=== PATIENT | female | born 1995 | race Caucasian/White ===

== ENCOUNTER 2021-02-03 18:04 | Emergency (ER) | payer OTHER ==
[~2021-02-03] VITALS: Ht 165.1 cm; Wt 74.8 kg
[2021-02-03 18:15] VITALS: BP 116/63
[2021-02-03] MEDS ORDERED: predniSONE 20 MG TABLET PO ONE (18:30)
[2021-02-03] MEDS ORDERED: diphenhydrAMINE HCL 25 MG CAPSULE PO ONE (18:30)
[2021-02-03] MEDS ORDERED: predniSONE 20 MG TABLET ONE (18:38)
[2021-02-03] MEDS ORDERED: diphenhydrAMINE HCL 50 MG CAPSULE ONE (18:38)
[2021-02-03] MEDS ORDERED: SUCR1TAB PO (19:11)
[2021-02-03] MEDS ORDERED: PRED20TA PO (19:11)
[2021-02-03] MEDS ORDERED: DIPH50CA4 PO (19:11)
--- NOTE | 2021-02-03 19:20 | NUR ---
Patient discharged to home in stable condition. Written and verbal after care instructions given. Patient verbalizes understanding of instruction.
== END 2021-02-03 19:20 | disposition home or self-care (01) ==
LOC: ER 18:04
DX: T78.1XXA Other adverse food reactions, not elsewhere classified, initial encounter (principal); R10.13 Epigastric pain; R00.0 Tachycardia, unspecified; K21.9 Gastro-esophageal reflux disease without esophagitis; F43.10 Post-traumatic stress disorder, unspecified; Z88.8 Allergy status to other drugs, medicaments and biological substances; Z88.2 Allergy status to sulfonamides; Z88.1 Allergy status to other antibiotic agents; Z79.899 Other long term (current) drug therapy; X58.XXXA Exposure to other specified factors, initial encounter
CPT/HCPCS: 99283; J7512; Q0163

== ENCOUNTER 2023-02-27 16:22 | Emergency (ER) | payer OTHER ==
[~2023-02-27] VITALS: Ht 165.1 cm; Wt 74.8 kg
[~2023-02-27 16:22] MED LIST: DIPH50CA4 PO; PRED20TA PO; SUCR1TAB PO
--- NOTE | 2023-02-27 16:22 | NUR ---
[facility] FOR ALLERGIC REACTION. PATIENT HAS MANY ALLERGIES AND HISTORY OF ALLERGIC RESPONSES REQUIRING ER VISITS, PATIENT WAS EXPOSED TO COUGH SYRUP TODAY WHICH CAUSED AN ALLERGIC RESPONSE. A/O X 3, ABLE TO MAKE NEEDS KNOWN, TOLERATING WELL ON ROOM AIR. WITH PERMACATH ON RIGHT UPPER CHEST D/T HX CROHNS DISEASE.
[2023-02-27] MEDS ORDERED: methylPREDNISolone SOD SUCC 125 MG/2ML VIAL IV ONE (17:00)
[2023-02-27] MEDS ORDERED: FAMOTIDINE/PF INJ 20 MG/2 ML VIAL IV ONE ×2 (17:00→17:02)
[2023-02-27] MEDS ORDERED: diphenhydrAMINE HCL 50 MG/ML VIAL IV ONE ×2 (17:00→22:00)
--- NOTE | 2023-02-27 17:00 | NUR ---
ACCESS OBTAINED VIA RIGHT UPPER CHEST PERMACATH. STERILE TECHNIQUE USED TO OBTAIN ACCESS AND ATTACH TUBING. ALL MEDICATIONS ADMINISTERED VIA PERMACATH ACCESS ORDERED.
[2023-02-27] MEDS ORDERED: diphenhydrAMINE HCL 50 MG/ML VIAL ONE ×2 (17:01→21:45)
[2023-02-27] MEDS ORDERED: methylPREDNISolone SOD SUCC 125 MG/2ML VIAL ONE (17:01)
--- NOTE | 2023-02-27 19:15 | NUR ---
Pt is noted in bed alert, responsive as report is rteceived from the off going nurse that Pt came from home C/O SOB and Itchiness after Drinking Cough Syrup , 1gm off EPI was given on sence. Pt care continue.
[2023-02-27] MEDS ORDERED: IV NS 0.9% 1,000 ML IV ONE (21:00)
[2023-02-27] MEDS ORDERED: DIPH25CA83 PO (21:21)
[2023-02-27] MEDS ORDERED: PRED20TA PO (21:21)
[2023-02-27] MEDS ORDERED: ONDANSETRON HCL/PF 4 MG/2 ML VIAL ONE (21:45)
--- NOTE | 2023-02-27 21:49 | NUR ---
Benadryl 25mg IVP and Zofran 4mg IVP given as ordered. Pt care continue.
[2023-02-27] MEDS ORDERED: ONDANSETRON HCL/PF 4 MG/2 ML VIAL IV ONE (22:00)
--- NOTE | 2023-02-27 23:09 | NUR ---
Benadryl 25mg IVP and Zofran 4mg IVP noted effective. Pt care continue.
[2023-02-27 23:23] VITALS: BP 122/63
--- NOTE | 2023-02-27 23:24 | NUR ---
Pt is noted off the unit as she is been discharge to home with all discharge instruction given
== END 2023-02-27 23:25 | disposition home or self-care (01) ==
LOC: ER 16:26
DX: R20.2 Paresthesia of skin (principal); R06.2 Wheezing; T50.905A Adverse effect of unspecified drugs, medicaments and biological substances, initial encounter; K50.90 Crohn's disease, unspecified, without complications; K21.9 Gastro-esophageal reflux disease without esophagitis; Z60.2 Problems related to living alone; Z79.899 Other long term (current) drug therapy; Z88.2 Allergy status to sulfonamides; Z88.1 Allergy status to other antibiotic agents; Y92.59 Other trade areas as the place of occurrence of the external cause
CPT/HCPCS: 99285; 96374; 96375; 96361; 96376; J1200 ×2; J3490; J2930; J2405; J7030; A4223

== ENCOUNTER 2023-09-16 15:30 | Emergency (ER) | payer OTHER ==
[~2023-09-16] VITALS: Ht 165.1 cm; Wt 74.8 kg
[~2023-09-16 15:30] MED LIST changes: +DIPH25CA83 PO
[2023-09-16] MEDS ORDERED: predniSONE 20 MG TABLET ONE (17:29)
[2023-09-16] MEDS ORDERED: FAMOTIDINE (20 MG) 20 MG TABLET ONE (17:30)
[2023-09-16] MEDS ORDERED: diphenhydrAMINE HCL 50 MG CAPSULE ONE (17:30)
[2023-09-16] MEDS ORDERED: predniSONE 10 MG TABLET PO ONE (17:30)
[2023-09-16] MEDS ORDERED: FAMOTIDINE (20 MG) 20 MG TABLET PO ONE (17:30)
[2023-09-16] MEDS ORDERED: ONDANSETRON 4 MG TAB.RAPDIS SL ONE (17:30)
[2023-09-16] MEDS ORDERED: ONDANSETRON 4 MG TAB.RAPDIS ONE (17:30)
[2023-09-16] MEDS ORDERED: diphenhydrAMINE HCL 50 MG CAPSULE PO ONE (17:30)
[2023-09-16] MEDS ORDERED: ACETAMINOPHEN ES 500 MG TABLET ONE (18:25)
[2023-09-16] MEDS ORDERED: IBUPROFEN 400 MG TABLET ONE (18:25)
[2023-09-16] MEDS ORDERED: IBUPROFEN 400 MG TABLET PO ONE (18:30)
[2023-09-16] MEDS ORDERED: ACETAMINOPHEN ES 500 MG TABLET PO ONE (18:30)
[2023-09-16] MEDS ORDERED: ONDA4TAB11 PO (19:22)
[2023-09-16] MEDS ORDERED: PRED20TA PO (19:22)
[2023-09-16 20:03] VITALS: BP 108/60; TEMP 98.9; O2SAT 100
== END 2023-09-16 20:03 | disposition home or self-care (01) ==
LOC: ER 16:43
DX: R11.2 Nausea with vomiting, unspecified (principal); R53.83 Other fatigue; R00.2 Palpitations; T41.3X5A Adverse effect of local anesthetics, initial encounter; K21.9 Gastro-esophageal reflux disease without esophagitis; Z79.899 Other long term (current) drug therapy; Z60.2 Problems related to living alone; Z88.2 Allergy status to sulfonamides; Y92.89 Other specified places as the place of occurrence of the external cause
CPT/HCPCS: 99284; 93005; Q0163; J7512; Q0162

== ENCOUNTER 2024-07-31 23:40 | Inpatient (IN) | payer OTHER ==
[~2024-07-31] VITALS: Ht 165.1 cm; Wt 103.4 kg
[~2024-07-31 23:40] MED LIST changes: +ONDA4TAB11 PO
[2024-08-01] MEDS ORDERED: EPINEPHRINE (1:1000) 1 MG/ML AMPUL ONE ×2 (00:26→03:59)
[2024-08-01] MEDS ORDERED: FAMOTIDINE/PF INJ 20 MG/2 ML VIAL IV ONE ×2 (00:26→03:07)
[2024-08-01] MEDS ORDERED: methylPREDNISolone SOD SUCC 125 MG/2ML VIAL ONE ×2 (00:26→03:06)
[2024-08-01] MEDS ORDERED: diphenhydrAMINE HCL 50 MG/ML VIAL ONE ×2 (00:26→03:06)
[2024-08-01] MEDS: IV NS 0.9% 1,000 ML BAG IV ONE (00:43)
[2024-08-01] MEDS ORDERED: HYDROMORPHONE 1 MG/1 ML DISP.SYRIN ONE ×2 (00:48→03:40)
[2024-08-01] MEDS: EPINEPHRINE (1:1000) 1 MG/ML AMPUL SUBCUT ONE ×2 (00:49→04:01)
[2024-08-01] MEDS: FAMOTIDINE/PF INJ 20 MG/2 ML VIAL IV ONE ×2 (00:49→03:12)
[2024-08-01] MEDS: diphenhydrAMINE HCL 50 MG/ML VIAL IV ONE ×2 (00:49→03:12)
[2024-08-01] MEDS: methylPREDNISolone SOD SUCC 125 MG/2ML VIAL IV ONE ×2 (00:49→03:12)
[2024-08-01] MEDS: HYDROMORPHONE 1 MG/1 ML DISP.SYRIN IM ONE (00:49)
[2024-08-01] MEDS: HYDROMORPHONE 1 MG/1 ML DISP.SYRIN IV ONE ×2 (03:41→13:17)
[2024-08-01] MEDS ORDERED: Z GUARD REMEDY 4 OZ OINT TP PRN (05:00)
[2024-08-01] MEDS ORDERED: MAGNESIUM HYDROXIDE 30 ML UDC PO PRN (05:00)
[2024-08-01] MEDS ORDERED: MAG HYDROX/AL HYDROX/SIMETH 30 ML UDC PO PRN (05:00)
[2024-08-01 05:56] LABS: BASOPHILS % (AUTO) 0.2 % (0.0-2.0); HEMATOCRIT 28 % (33-45); HEMOGLOBIN 8.7 g/dL (11.5-14.8); LYMPHOCYTES % (AUTO) 6.4 % (20.0-44.0); MEAN CORPUSCULAR HEMOGLOBIN 23 PG (26.0-33.0); MEAN CORPUSCULAR HGB CONC 31 g/dl (31.0-36.0); MEAN CORPUSCULAR VOLUME 75 fL (82-100); MONOCYTES # (AUTO) 0.2 K/uL (0.1-1.30); MONOCYTES % (AUTO) 1.3 % (2.0-12.0); NEUTROPHILS # (AUTO) 14.6 K/uL (1.8-8.9); NEUTROPHILS % (AUTO) 92.1 % (43.0-81.0); PLATELET COUNT (AUTO) 326 K/uL (150-450); RED BLOOD CELL COUNT(AUTO) 3.81 MIL/uL (4.0-5.2); WHITE BLOOD COUNT (AUTO) 15.9 K/uL (4.3-11.0)
[2024-08-01 06:08] LABS: ALANINE AMINOTRANSFERASE 11 U/L (12-78); ALBUMIN 2.7 g/dL (3.4-5.0); ALKALINE PHOSPHATASE 70 U/L (46-116); ASPARTATE AMINOTRANSFERASE 6 U/L (15-37); BILIRUBIN,DIRECT 0.1 mg/dL (0.0-0.2); BILIRUBIN,TOTAL 0.3 mg/dL (0.2-1.0); CALCIUM, SERUM 8.5 mg/dL (8.5-10.1); CARBON DIOXIDE 23 mmol/L (21-32); CHLORIDE 102 mmol/L (98-107); GLUCOSE 170 mg/dL (74-106); MAGNESIUM 1.9 mg/dL (1.8-2.4); PHOSPHORUS 3.4 mg/dL (2.5-4.9); POTASSIUM 4.1 mmol/L (3.5-5.1); SODIUM SERUM 136 mmol/L (136-145); TOTAL PROTEIN, SERUM 7.5 g/dL (6.4-8.2); UREA NITROGEN, BLOOD 17 mg/dL (7-18)
[2024-08-01 08:00] VITALS: BP 121/79; TEMP 98.6; O2SAT 96
[2024-08-01] MEDS ORDERED: CYCL5TAB PO (08:46)
[2024-08-01] MEDS ORDERED: OXYC10TA49 PO (08:46)
[2024-08-01] MEDS ORDERED: ARIP2TAB19 PO (08:46)
[2024-08-01] MEDS ORDERED: DIPH50CA37 PO (08:46)
[2024-08-01] MEDS ORDERED: PRED20TA PO (08:46)
[2024-08-01] MEDS ORDERED: ESCI20TA PO (08:46)
[2024-08-01] MEDS: diphenhydrAMINE HCL 50 MG/ML VIAL IV PRN ×2 (08:46→14:17)
[2024-08-01] MEDS ORDERED: LEVA0.6320 NEB (08:46)
[2024-08-01] MEDS ORDERED: HYDR2TAB4 PO (08:46)
[2024-08-01] MEDS ORDERED: NORE-213 PO (08:46)
[2024-08-01] MEDS ORDERED: SUMA25TA10 PO (08:46)
[2024-08-01] MEDS ORDERED: OMEP40CA21 PO (08:46)
[2024-08-01] MEDS: FAMOTIDINE/PF INJ 20 MG/2 ML VIAL IV SCH (08:47)
[2024-08-01] MEDS: methylPREDNISolone SOD SUCC 40 MG/ML VIAL IV SCH (08:47)
[2024-08-01] MEDS: ACETAMINOPHEN 325 MG TABLET PO PRN (10:33)
[2024-08-01 12:00] VITALS: BP 117/73; TEMP 98.3; O2SAT 97
[2024-08-01 16:00] VITALS: BP 116/69; TEMP 98.4; O2SAT 96
[2024-08-01] MEDS: oxyCODONE/APAP (5/325 MG) 1 UDTAB TABLET PO PRN (16:07)
[2024-08-01 20:00] VITALS: BP 103/60; TEMP 98.4; O2SAT 95
[2024-08-01] MEDS ORDERED: ESCITALOPRAM OXALATE (10 MG) 10 MG TABLET PO SCH ×2 (22:00)
[2024-08-01] MEDS: oxyCODONE/APAP (5/325 MG) 1 UDTAB TABLET PO ONE (23:38)
[2024-08-02] VITALS: BP 117/65; TEMP 98.8; O2SAT 97
[2024-08-02 04:00] VITALS: BP 115/72; TEMP 98.1; O2SAT 96
[2024-08-02 08:00] VITALS: BP 128/85; TEMP 98.1; O2SAT 94
[2024-08-02] MEDS: FAMOTIDINE (20 MG) 20 MG TABLET PO SCH (08:40)
[2024-08-02] MEDS ORDERED: ARIPIPRAZOLE 2 MG TABLET PO SCH (09:00)
[2024-08-02 10:42] LABS: PREGNANCY TEST URINE QUAL NEGATIVE (NEGATIVE)
[2024-08-02 11:07] LABS: BASOPHILS # (AUTO) 0.1 K/uL (0.0-0.2); BASOPHILS % (AUTO) 0.8 % (0.0-2.0); HEMATOCRIT 27 % (33-45); HEMOGLOBIN 8.1 g/dL (11.5-14.8); LYMPHOCYTES # (AUTO) 1.9 K/uL (0.8-4.8); LYMPHOCYTES % (AUTO) 11.4 % (20.0-44.0); MEAN CORPUSCULAR HEMOGLOBIN 23 PG (26.0-33.0); MEAN CORPUSCULAR HGB CONC 31 g/dl (31.0-36.0); MEAN CORPUSCULAR VOLUME 75 fL (82-100); MONOCYTES # (AUTO) 0.7 K/uL (0.1-1.30); NEUTROPHILS % (AUTO) 83.8 % (43.0-81.0); PLATELET COUNT (AUTO) 301 K/uL (150-450); RED BLOOD CELL COUNT(AUTO) 3.55 MIL/uL (4.0-5.2); RED CELL DISTRIBUTION WIDTH 17.9 % (11.5-15.0); WHITE BLOOD COUNT (AUTO) 16.7 K/uL (4.3-11.0)
[2024-08-02] MEDS: DILTIAZEM HCL CD 240 MG PO SCH (11:56)
[2024-08-02 12:04] LABS: CALCIUM, SERUM 8.8 mg/dL (8.5-10.1); POTASSIUM 3.8 mmol/L (3.5-5.1)
[2024-08-02 12:19] LABS: CHOLESTEROL 258 mg/dL (<200); HDL CHOLESTEROL 87 mg/dL (40-60); LDL 149 mg/dL (0-99); TRIGLYCERIDES 135 mg/dL (30-150)
[2024-08-02] MEDS ORDERED: METH4TAB3 PO (14:02)
[2024-08-02] MEDS ORDERED: FERR325T23 PO (14:02)
[2024-08-02] MEDS ORDERED: ASCO500C18 PO (14:02)
[2024-08-02] MEDS ORDERED: DILT240C88 PO (14:02)
[2024-08-02 16:00] VITALS: BP 132/77; TEMP 99.4; O2SAT 98
[2024-08-03 10:09] LABS: *SPE A/G RATIO 0.8 (0.7-1.7); *SPE ALBUMIN 2.8 g/dL (2.9-4.4); *SPE ALPHA-1-GLOBULIN 0.3 g/dL (0.0-0.4); *SPE ALPHA-2-GLOBULIN 0.9 g/dL (0.4-1.0); *SPE BETA GLOBULIN 1.3 g/dL (0.7-1.3); *SPE GLOBULIN, TOTAL 3.7 g/dL (2.2-3.9); *SPE M-SPIKE Not Observed g/dL (Not Observed); *SPE PROTEIN TOTAL 6.5 g/dL (6.0-8.5); *SPEGAMMA GLOBULIN 1.2 g/dL (0.4-1.8)
== END 2024-08-02 17:00 | disposition home or self-care (01) | DRG 815 ==
LOC: ER 23:41 → TELE1 08-01 05:58 → MEDSG1 08-02 09:55
PROVIDERS: ADMIT Nurse Practitioner Family; ATTEND Nurse Practitioner Family
DX: D89.40 Mast cell activation, unspecified (principal); K50.90 Crohn's disease, unspecified, without complications; D50.9 Iron deficiency anemia, unspecified; G90.A Postural orthostatic tachycardia syndrome [POTS]; K21.9 Gastro-esophageal reflux disease without esophagitis; Z88.1 Allergy status to other antibiotic agents; Z91.041 Radiographic dye allergy status; Z88.2 Allergy status to sulfonamides; Z91.048 Other nonmedicinal substance allergy status; F43.10 Post-traumatic stress disorder, unspecified; Z79.52 Long term (current) use of systemic steroids; Z79.899 Other long term (current) drug therapy; Z88.3 Allergy status to other anti-infective agents
CPT/HCPCS: 36415; 80048-TC; 80061-TC; 80076-TC; 82728-TC; 83540-TC; 83735-TC; 84100-TC; 84155; 84165; 84439-TC; 84443-TC; 84484-TC; 84703-TC; 85025-TC; 85652-TC; 93307-TC; G0378; J0171; J1170; J1200; J2919; J3490; J7030

== ENCOUNTER 2024-10-02 20:24 | Inpatient (IN) | payer OTHER ==
[~2024-10-02] VITALS: Ht 165.1 cm; Wt 111.1 kg
[~2024-10-02 20:24] MED LIST changes: +ARIP2TAB19 PO; +ASCO500C18 PO; +CYCL5TAB PO; +DILT240C88 PO; -DIPH25CA83 PO; +DIPH50CA37 PO; -DIPH50CA4 PO; +ESCI20TA PO; +FERR325T23 PO; +HYDR2TAB4 PO; +LEVA0.6320 NEB; +METH4TAB3 PO; +NORE-213 PO; +OMEP40CA21 PO; -ONDA4TAB11 PO; +OXYC10TA49 PO; -PRED20TA PO; -SUCR1TAB PO; +SUMA25TA10 PO
[2024-10-02] MEDS ORDERED: diphenhydrAMINE HCL 50 MG/ML VIAL ONE ×2 (21:13→23:23)
[2024-10-02] MEDS ORDERED: IBUPROFEN 600 MG TABLET ONE (21:13)
[2024-10-02] MEDS: IBUPROFEN 600 MG TABLET PO ONE (21:14)
[2024-10-02] MEDS: IV NS 0.9% 1,000 ML BAG IV ONE (21:14)
[2024-10-02] MEDS: diphenhydrAMINE HCL 50 MG/ML VIAL IV ONE ×2 (21:14→23:30)
[2024-10-02 21:29] LABS: BASOPHILS # (AUTO) 0.1 K/uL (0.0-0.2); BASOPHILS % (AUTO) 0.7 % (0.0-2.0); EOSINOPHILS % (AUTO) 0.2 % (0.0-6.0); HEMATOCRIT 26 % (33-45); HEMOGLOBIN 8.2 g/dL (11.5-14.8); LYMPHOCYTES # (AUTO) 2.4 K/uL (0.8-4.8); LYMPHOCYTES % (AUTO) 12.1 % (20.0-44.0); MEAN CORPUSCULAR HEMOGLOBIN 22 PG (26.0-33.0); MEAN CORPUSCULAR HGB CONC 31 g/dl (31.0-36.0); MEAN CORPUSCULAR VOLUME 70 fL (82-100); MONOCYTES # (AUTO) 1.4 K/uL (0.1-1.30); MONOCYTES % (AUTO) 7.1 % (2.0-12.0); NEUTROPHILS # (AUTO) 16.1 K/uL (1.8-8.9); NEUTROPHILS % (AUTO) 79.9 % (43.0-81.0); PLATELET COUNT (AUTO) 214 K/uL (150-450); RED BLOOD CELL COUNT(AUTO) 3.73 MIL/uL (4.0-5.2); RED CELL DISTRIBUTION WIDTH 18.2 % (11.5-15.0); WHITE BLOOD COUNT (AUTO) 20.1 K/uL (4.3-11.0)
[2024-10-02 21:41] LABS: INR 1.15 (0.91-1.10); PARTIAL THROMBOPLASTIN TIME 29.3 SEC (24.3-34.3); PROTHROMBIN TIME 12.1 SECS (9.2-11.1)
[2024-10-02 21:43] LABS: ALANINE AMINOTRANSFERASE 56 U/L (12-78); ALKALINE PHOSPHATASE 144 U/L (46-116); ASPARTATE AMINOTRANSFERASE 57 U/L (15-37); BILIRUBIN,DIRECT 0.5 mg/dL (0.0-0.2); BILIRUBIN,TOTAL 0.8 mg/dL (0.2-1.0); CHLORIDE 101 mmol/L (98-107); GLUCOSE 144 mg/dL (74-106); POTASSIUM 2.8 mmol/L (3.5-5.1); SODIUM SERUM 135 mmol/L (136-145); TOTAL PROTEIN, SERUM 6.7 g/dL (6.4-8.2); UREA NITROGEN, BLOOD 9 mg/dL (7-18)
[2024-10-02 21:47] LABS: LACTIC ACID 1.5 mmol/L (0.4-2.0)
[2024-10-02 21:48] LABS: CARBON DIOXIDE 23 mmol/L (21-32)
[2024-10-02 21:52] LABS: BAND % (MANUAL) 4 % (0.0-5.0); LYMPHOCYTES % (MANUAL) 15 % (16-48); MONOCYTES % (MANUAL) 8 % (0-11.0); NEUTROPHILS % (MANUAL) 73 (42-76); PLATELET ESTIMATE ADEQUATE
[2024-10-02] MEDS: POTASSIUM CHLORIDE 20 MEQ TAB.PRT.SR PO ONE (21:57)
[2024-10-02] MEDS ORDERED: POTASSIUM CHLORIDE 20 MEQ TAB.PRT.SR PO ONE (21:57)
[2024-10-02 22:01] LABS: ANISOCYTOSIS 1+; HYPOCHROMASIA 1+; OVALOCYTES 1+; STOMATOCYTES 1+; TEAR DROP CELLS 1+
[2024-10-02] MEDS ORDERED: POTA-88 PO (22:01)
[2024-10-02 22:04] LABS: APPEARANCE,URINE CLEAR (CLEAR); BILIRUBIN,URINE NEGATIVE (NEGATIVE); BLOOD, URINE 3+ Ery/uL (NEGATIVE); COLOR,URINE YELLOW (YELLOW); KETONES,URINE TRACE mg/dL (NEGATIVE); LEUKOCYTE ESTERASE ,URINE TRACE (NEGATIVE); NITRITE, URINE NEGATIVE (NEGATIVE); PROTEIN,URINE 1+ mg/dl (NEGATIVE); UGLUCOSE NEGATIVE (NEGATIVE); UROBILINOGEN,URINE 0.2 EU/dL (0.2)
[2024-10-02 22:08] LABS: ADD URINE CULTURE YES; BACTERIA,URINE 1+ /HPF (None Seen); COARSE GRANULAR CASTS,URINE Few /LPF (None Seen); MUCUS,URINE Few /LPF (None Seen)
[2024-10-02] MEDS ORDERED: PIPERACI/TAZO 3.375GM/D5W 50ML PB IV ONE (22:16)
[2024-10-02] MEDS: PIPERACILLIN /TAZOBACTAM 3.375 G in IV D5W 50 ML IV ONE (22:17)
[2024-10-02] MEDS ORDERED: ONDANSETRON HCL/PF 4 MG/2 ML VIAL ONE (23:23)
[2024-10-02] MEDS: ONDANSETRON HCL/PF 4 MG/2 ML VIAL IV ONE (23:30)
[2024-10-03] VITALS (11 sets, daily range): BP systolic 101–137; BP diastolic 47–75; TEMP 98.1–103; O2SAT 90–100
[2024-10-03] MEDS ORDERED: Z GUARD REMEDY 4 OZ OINT TP PRN (01:30)
[2024-10-03] MEDS ORDERED: MAGNESIUM HYDROXIDE 30 ML UDC PO PRN (01:30)
[2024-10-03] MEDS ORDERED: MAG HYDROX/AL HYDROX/SIMETH 30 ML UDC PO PRN (01:30)
[2024-10-03] MEDS ORDERED: NORETHINDRONE E ESTRADIOL IRON PO SCH (02:00)
[2024-10-03] MEDS ORDERED: CYCLOBENZAPRINE 10 MG TABLET PO PRN (02:30)
[2024-10-03] MEDS ORDERED: LEVALBUTEROL HCL NEB 1.25 MG/0.5 ML VIAL.NEB IH PRN (02:30)
[2024-10-03] MEDS: oxyCODONE/APAP (5/325 MG) 1 UDTAB TABLET PO PRN (03:42)
[2024-10-03] MEDS: IV NS 0.9% 1,000 ML IV SCH (03:43)
[2024-10-03] MEDS ORDERED: ALBUTEROL HALF STRENGTH 1.25 MG/3 ML VIAL.NEB IH PRN (07:30)
[2024-10-03] MEDS: CEFTRIAXONE 1 G in IV D5W 50 ML IV SCH (08:19)
[2024-10-03] MEDS: AZITHROMYCIN 500 MG in IV D5W 250 ML IV SCH (08:19)
[2024-10-03] MEDS: PANTOPRAZOLE 40 MG TABLET.DR PO SCH (08:20)
[2024-10-03] MEDS: POTASSIUM CHLORIDE 20 MEQ TAB.PRT.SR PO SCH (08:20)
[2024-10-03] MEDS: ARIPIPRAZOLE 2 MG TABLET PO SCH (08:20)
[2024-10-03] MEDS: ASCORBIC ACID 500 MG TABLET PO SCH (08:20)
[2024-10-03] MEDS: FERROUS SULFATE (325 MG) 325 MG/TAB TABLET PO SCH (08:20)
[2024-10-03] MEDS: DILTIAZEM HCL CD 240 MG PO SCH (08:20)
[2024-10-03] MEDS: ACETAMINOPHEN 325 MG TABLET PO PRN (08:24)
[2024-10-03] MEDS ORDERED: FAMO20TA8 PO (09:07)
[2024-10-03] MEDS ORDERED: OXYC5TAB3 PO (09:07)
[2024-10-03] MEDS ORDERED: FURO20TA4 PO (09:07)
[2024-10-03] MEDS ORDERED: ESCI10TA PO (09:07)
[2024-10-03] MEDS ORDERED: CLON0.1T PO (09:07)
[2024-10-03] MEDS ORDERED: SUMA50TA17 PO (09:07)
[2024-10-03] MEDS ORDERED: CHOL500052 PO (09:07)
[2024-10-03] MEDS ORDERED: HYDR50TA61 PO (09:07)
[2024-10-03] MEDS: LORATADINE 10 MG TABLET PO SCH (09:21)
[2024-10-03] MEDS: diphenhydrAMINE HCL 50 MG/ML VIAL IV ONE ×2 (09:21→18:04)
[2024-10-03] MEDS: MONTELUKAST SODIUM (10MG) 10 MG TABLET PO SCH (09:22)
[2024-10-03] MEDS ORDERED: BACITRACIN ZINC OINT PACKET 1 EA PACKET TP SCH (11:00)
[2024-10-03 11:52] LABS: BASOPHILS # (AUTO) 0.1 K/uL (0.0-0.2); BASOPHILS % (AUTO) 0.5 % (0.0-2.0); EOSINOPHILS # (AUTO) 0.1 K/uL (0.0-0.7); EOSINOPHILS % (AUTO) 0.4 % (0.0-6.0); HEMATOCRIT 26 % (33-45); HEMOGLOBIN 7.7 g/dL (11.5-14.8); LYMPHOCYTES # (AUTO) 2.6 K/uL (0.8-4.8); LYMPHOCYTES % (AUTO) 15.2 % (20.0-44.0); MEAN CORPUSCULAR HEMOGLOBIN 21 PG (26.0-33.0); MEAN CORPUSCULAR HGB CONC 30 g/dl (31.0-36.0); MEAN CORPUSCULAR VOLUME 71 fL (82-100); MONOCYTES # (AUTO) 1.2 K/uL (0.1-1.30); MONOCYTES % (AUTO) 7.2 % (2.0-12.0); NEUTROPHILS # (AUTO) 13.1 K/uL (1.8-8.9); NEUTROPHILS % (AUTO) 76.7 % (43.0-81.0); PLATELET COUNT (AUTO) 183 K/uL (150-450); RED BLOOD CELL COUNT(AUTO) 3.64 MIL/uL (4.0-5.2); RED CELL DISTRIBUTION WIDTH 18.3 % (11.5-15.0); WHITE BLOOD COUNT (AUTO) 17.1 K/uL (4.3-11.0)
[2024-10-03 12:35] LABS: CALCIUM, SERUM 8.1 mg/dL (8.5-10.1); CREATININE 0.9 mg/dL (0.6-1.3); MAGNESIUM 1.8 mg/dL (1.8-2.4); PHOSPHORUS 2.8 mg/dL (2.5-4.9); POTASSIUM 3.1 mmol/L (3.5-5.1)
[2024-10-03] MEDS: diphenhydrAMINE HCL 50 MG/ML VIAL IV PRN (13:16)
[2024-10-03 14:23] LABS: BASOPHILS % (MANUAL) 0 % (0.0-2.0); EOSINOPHILS % (MANUAL) 1 % (0-4); LYMPHOCYTES % (MANUAL) 13 % (16-48); MONOCYTES % (MANUAL) 6 % (0-11.0); NEUTROPHILS % (MANUAL) 80 (42-76)
[2024-10-03 14:25] LABS: HYPOCHROMASIA 1+; PLATELET ESTIMATE ADEQUATE
[2024-10-03 14:26] LABS: ANISOCYTOSIS 1+
[2024-10-03] MEDS: BACITRACIN ZINC OINT (15 GM) 15 GM TUBE TP SCH (16:58)
[2024-10-03] MEDS: IV NS 0.9% 500 ML IV ONE (18:04)
[2024-10-03] MEDS: FAMOTIDINE/PF INJ 20 MG/2 ML VIAL IV ONE (18:04)
[2024-10-03] MEDS: IV NS 0.9% 1,000 ML IV PRN (19:44)
[2024-10-03 19:45] LABS: IRON, SERUM 26 ug/dl (50-175); TOTAL IRON BINDING CAPACITY 272 ug/dl (250-450)
[2024-10-03 21:38] LABS: PREGNANCY TEST URINE QUAL NEGATIVE (NEGATIVE)
[2024-10-03 21:54] LABS: AMPHETAMINE, URINE NEGATIVE (NEGATIVE); BARBITURATE, URINE NEGATIVE (NEGATIVE); BENZODIAZEPINE, URINE NEGATIVE (NEGATIVE); CANNABINOID, URINE NEGATIVE (NEGATIVE); COCCAINE, URINE NEGATIVE (NEGATIVE); PHENCYCLIDINE SCREEN,URINE NEGATIVE (NEGATIVE)
[2024-10-03 22:01] LABS: OPIATE, URINE POSITIVE (NEGATIVE)
[2024-10-03] MEDS: ESCITALOPRAM OXALATE (10 MG) 10 MG TABLET PO SCH (22:10)
[2024-10-03] MEDS: HYDROMORPHONE 1 MG/1 ML DISP.SYRIN IV PRN (23:01)
[2024-10-04] VITALS (27 sets, daily range): BP systolic 102–140; BP diastolic 55–84; TEMP 98.8–99.5; O2SAT 91–100
[2024-10-04 02:44] LABS: BASOPHILS % (AUTO) 0.3 % (0.0-2.0); EOSINOPHILS # (AUTO) 0.2 K/uL (0.0-0.7); EOSINOPHILS % (AUTO) 1.1 % (0.0-6.0); HEMATOCRIT 24 % (33-45); HEMOGLOBIN 7.4 g/dL (11.5-14.8); LYMPHOCYTES # (AUTO) 3.8 K/uL (0.8-4.8); LYMPHOCYTES % (AUTO) 24.8 % (20.0-44.0); MEAN CORPUSCULAR HEMOGLOBIN 22 PG (26.0-33.0); MEAN CORPUSCULAR HGB CONC 31 g/dl (31.0-36.0); MEAN CORPUSCULAR VOLUME 70 fL (82-100); MONOCYTES # (AUTO) 1.4 K/uL (0.1-1.30); NEUTROPHILS # (AUTO) 9.9 K/uL (1.8-8.9); NEUTROPHILS % (AUTO) 64.8 % (43.0-81.0); PLATELET COUNT (AUTO) 195 K/uL (150-450); RED BLOOD CELL COUNT(AUTO) 3.43 MIL/uL (4.0-5.2); RED CELL DISTRIBUTION WIDTH 18.3 % (11.5-15.0); WHITE BLOOD COUNT (AUTO) 15.2 K/uL (4.3-11.0)
[2024-10-04 02:57] LABS: CALCIUM, SERUM 7.7 mg/dL (8.5-10.1); CREATININE 0.6 mg/dL (0.6-1.3); MAGNESIUM 1.9 mg/dL (1.8-2.4); PHOSPHORUS 2.7 mg/dL (2.5-4.9); POTASSIUM 3.1 mmol/L (3.5-5.1)
[2024-10-04 03:40] LABS: EOSINOPHILS % (MANUAL) 1 % (0-4); LYMPHOCYTES % (MANUAL) 27 % (16-48); METAMYELOCYTES % 1 % (0-0); MONOCYTES % (MANUAL) 11 % (0-11.0); NEUTROPHILS % (MANUAL) 60 (42-76)
[2024-10-04 03:41] LABS: HYPOCHROMASIA 1+; PLATELET ESTIMATE ADEQUATE
[2024-10-04 03:42] LABS: ANISOCYTOSIS 2+
[2024-10-04] MEDS: LINEZOLID RTU BAG 600 MG in PREMIX 1 EA IV SCH (08:38)
[2024-10-04] MEDS: POTASSIUM CHLORIDE 20 MEQ TAB.PRT.SR PO SCH (11:29)
[2024-10-04] MEDS: methylPREDNISolone SOD SUCC 125 MG/2ML VIAL IV ONE (12:58)
[2024-10-04] MEDS ORDERED: SOD FERRIC GLUC 125 MG in IV NS 0.9% 100 ML IV SCH (14:00)
[2024-10-04] MEDS: ALBUTEROL HALF STRENGTH 1.25 MG/3 ML VIAL.NEB IH PRN (16:09)
[2024-10-04] MEDS: HYDROMORPHONE 1 MG/1 ML DISP.SYRIN IV PRN (18:52)
[2024-10-04] MEDS: DOXYCYCLINE 100 MG in IV D5W 100 ML IV SCH (21:20)
[2024-10-05] VITALS (25 sets, daily range): BP systolic 94–135; BP diastolic 61–85; TEMP 97.7–99; O2SAT 91–98
[2024-10-05 04:57] LABS: BASOPHILS % (AUTO) 0.2 % (0.0-2.0); EOSINOPHILS % (AUTO) 0.1 % (0.0-6.0); HEMATOCRIT 25 % (33-45); HEMOGLOBIN 7.6 g/dL (11.5-14.8); LYMPHOCYTES # (AUTO) 3.2 K/uL (0.8-4.8); LYMPHOCYTES % (AUTO) 27.5 % (20.0-44.0); MEAN CORPUSCULAR HEMOGLOBIN 21 PG (26.0-33.0); MEAN CORPUSCULAR HGB CONC 31 g/dl (31.0-36.0); MEAN CORPUSCULAR VOLUME 70 fL (82-100); MONOCYTES # (AUTO) 0.5 K/uL (0.1-1.30); MONOCYTES % (AUTO) 4.3 % (2.0-12.0); NEUTROPHILS % (AUTO) 67.9 % (43.0-81.0); PLATELET COUNT (AUTO) 238 K/uL (150-450); RED BLOOD CELL COUNT(AUTO) 3.56 MIL/uL (4.0-5.2); RED CELL DISTRIBUTION WIDTH 18.6 % (11.5-15.0); WHITE BLOOD COUNT (AUTO) 11.8 K/uL (4.3-11.0)
[2024-10-05 05:19] LABS: CALCIUM, SERUM 8.1 mg/dL (8.5-10.1); CREATININE 0.6 mg/dL (0.6-1.3)
[2024-10-05 06:30] LABS: BAND % (MANUAL) 5 % (0.0-5.0); LYMPHOCYTES % (MANUAL) 23 % (16-48); MONOCYTES % (MANUAL) 4 % (0-11.0); MYELOCYTES % 3 % (0-0); NEUTROPHILS % (MANUAL) 65 (42-76)
[2024-10-05 06:32] LABS: HYPOCHROMASIA 1+
[2024-10-05 06:33] LABS: ANISOCYTOSIS 1+
[2024-10-05 06:35] LABS: PLATELET ESTIMATE ADEQU
[2024-10-05] MEDS: hydrOXYzine 10 MG TABLET PO PRN (09:06)
[2024-10-05] MEDS: methylPREDNISolone SOD SUCC 125 MG/2ML VIAL IV SCH (12:18)
[2024-10-05] MEDS ORDERED: EPINEPHRINE (1:1000) 1 MG/ML AMPUL IM ONE (14:30)
[2024-10-05] MEDS: diphenhydrAMINE HCL 50 MG/ML VIAL IV PRN (16:02)
[2024-10-05] MEDS: ALPRAZOLAM 1 MG TABLET PO PRN (18:48)
[2024-10-06] VITALS (25 sets, daily range): BP systolic 114–133; BP diastolic 65–89; TEMP 98.3–99; O2SAT 93–98
[2024-10-06 04:51] LABS: BASOPHILS % (AUTO) 0.2 % (0.0-2.0); EOSINOPHILS % (AUTO) 0.1 % (0.0-6.0); HEMATOCRIT 25 % (33-45); HEMOGLOBIN 7.9 g/dL (11.5-14.8); LYMPHOCYTES # (AUTO) 3.6 K/uL (0.8-4.8); LYMPHOCYTES % (AUTO) 24.8 % (20.0-44.0); MEAN CORPUSCULAR HEMOGLOBIN 23 PG (26.0-33.0); MEAN CORPUSCULAR HGB CONC 32 g/dl (31.0-36.0); MEAN CORPUSCULAR VOLUME 70 fL (82-100); MONOCYTES # (AUTO) 0.8 K/uL (0.1-1.30); MONOCYTES % (AUTO) 5.2 % (2.0-12.0); NEUTROPHILS % (AUTO) 69.7 % (43.0-81.0); PLATELET COUNT (AUTO) 310 K/uL (150-450); RED BLOOD CELL COUNT(AUTO) 3.51 MIL/uL (4.0-5.2); RED CELL DISTRIBUTION WIDTH 18.8 % (11.5-15.0); WHITE BLOOD COUNT (AUTO) 14.4 K/uL (4.3-11.0)
[2024-10-06 05:31] LABS: BAND % (MANUAL) 5 % (0.0-5.0); LYMPHOCYTES % (MANUAL) 27 % (16-48); MONOCYTES % (MANUAL) 7 % (0-11.0); NEUTROPHILS % (MANUAL) 61 (42-76); PLATELET ESTIMATE ADEQUATE
[2024-10-06 05:32] LABS: ANISOCYTOSIS 2+; HYPOCHROMASIA 1+; OVALOCYTES 1+
[2024-10-06 05:45] LABS: ALBUMIN 1.7 g/dL (3.4-5.0); BILIRUBIN,TOTAL 0.3 mg/dL (0.2-1.0); CALCIUM, SERUM 8.2 mg/dL (8.5-10.1); CREATININE 0.7 mg/dL (0.6-1.3); MAGNESIUM 1.9 mg/dL (1.8-2.4); PHOSPHORUS 2.6 mg/dL (2.5-4.9); POTASSIUM 3.5 mmol/L (3.5-5.1); TOTAL PROTEIN, SERUM 6.5 g/dL (6.4-8.2)
[2024-10-06] MEDS: methylPREDNISolone SOD SUCC 40 MG/ML VIAL IV SCH (12:41)
[2024-10-07] VITALS (24 sets, daily range): BP systolic 105–128; BP diastolic 57–90; TEMP 97.7–98.8; O2SAT 93–100
[2024-10-07 04:44] LABS: BASOPHILS % (AUTO) 0.1 % (0.0-2.0); HEMATOCRIT 24 % (33-45); HEMOGLOBIN 7.4 g/dL (11.5-14.8); LYMPHOCYTES # (AUTO) 3.8 K/uL (0.8-4.8); LYMPHOCYTES % (AUTO) 24.4 % (20.0-44.0); MEAN CORPUSCULAR HEMOGLOBIN 22 PG (26.0-33.0); MEAN CORPUSCULAR HGB CONC 31 g/dl (31.0-36.0); MEAN CORPUSCULAR VOLUME 71 fL (82-100); MONOCYTES # (AUTO) 1.3 K/uL (0.1-1.30); MONOCYTES % (AUTO) 8.4 % (2.0-12.0); NEUTROPHILS # (AUTO) 10.5 K/uL (1.8-8.9); NEUTROPHILS % (AUTO) 67.1 % (43.0-81.0); PLATELET COUNT (AUTO) 355 K/uL (150-450); RED BLOOD CELL COUNT(AUTO) 3.43 MIL/uL (4.0-5.2); RED CELL DISTRIBUTION WIDTH 18.6 % (11.5-15.0); WHITE BLOOD COUNT (AUTO) 15.6 K/uL (4.3-11.0)
[2024-10-07 05:05] LABS: ALBUMIN 1.7 g/dL (3.4-5.0); BILIRUBIN,TOTAL 0.2 mg/dL (0.2-1.0); CALCIUM, SERUM 7.9 mg/dL (8.5-10.1); CREATININE 0.7 mg/dL (0.6-1.3); MAGNESIUM 2.1 mg/dL (1.8-2.4); PHOSPHORUS 4.1 mg/dL (2.5-4.9); TOTAL PROTEIN, SERUM 6.3 g/dL (6.4-8.2)
[2024-10-07 05:46] LABS: BAND % (MANUAL) 2 % (0.0-5.0); LYMPHOCYTES % (MANUAL) 26 % (16-48); MONOCYTES % (MANUAL) 9 % (0-11.0); MYELOCYTES % 1 % (0-0); NEUTROPHILS % (MANUAL) 62 (42-76); PLATELET ESTIMATE ADEQUATE
[2024-10-07] MEDS: diphenhydrAMINE HCL 50 MG/ML VIAL IV PRN (15:35)
[2024-10-08] VITALS (25 sets, daily range): BP systolic 92–145; BP diastolic 62–87; TEMP 97.6–98.6; O2SAT 91–99
[2024-10-08 04:41] LABS: ALBUMIN 1.8 g/dL (3.4-5.0); BILIRUBIN,TOTAL 0.3 mg/dL (0.2-1.0); CALCIUM, SERUM 7.7 mg/dL (8.5-10.1); CREATININE 0.6 mg/dL (0.6-1.3); PHOSPHORUS 4.7 mg/dL (2.5-4.9); TOTAL PROTEIN, SERUM 6.2 g/dL (6.4-8.2)
[2024-10-08 07:11] LABS: BASOPHILS # (AUTO) 0.1 K/uL (0.0-0.2); BASOPHILS % (AUTO) 0.8 % (0.0-2.0); EOSINOPHILS # (AUTO) 0.1 K/uL (0.0-0.7); EOSINOPHILS % (AUTO) 0.8 % (0.0-6.0); HEMATOCRIT 28 % (33-45); HEMOGLOBIN 8.6 g/dL (11.5-14.8); LYMPHOCYTES # (AUTO) 4.8 K/uL (0.8-4.8); LYMPHOCYTES % (AUTO) 29.5 % (20.0-44.0); MEAN CORPUSCULAR HEMOGLOBIN 22 PG (26.0-33.0); MEAN CORPUSCULAR HGB CONC 30 g/dl (31.0-36.0); MEAN CORPUSCULAR VOLUME 72 fL (82-100); MONOCYTES # (AUTO) 1.4 K/uL (0.1-1.30); MONOCYTES % (AUTO) 8.7 % (2.0-12.0); NEUTROPHILS # (AUTO) 9.8 K/uL (1.8-8.9); NEUTROPHILS % (AUTO) 60.2 % (43.0-81.0); PLATELET COUNT (AUTO) 424 K/uL (150-450); RED BLOOD CELL COUNT(AUTO) 3.97 MIL/uL (4.0-5.2); RED CELL DISTRIBUTION WIDTH 18.6 % (11.5-15.0); WHITE BLOOD COUNT (AUTO) 16.4 K/uL (4.3-11.0)
[2024-10-08 09:41] LABS: ANISOCYTOSIS 1+; BAND % (MANUAL) 3 % (0.0-5.0); LYMPHOCYTES % (MANUAL) 31 % (16-48); MONOCYTES % (MANUAL) 2 % (0-11.0); MYELOCYTES % 2 % (0-0); NEUTROPHILS % (MANUAL) 62 (42-76); OVALOCYTES 1+; PLATELET ESTIMATE ADEQUATE
[2024-10-09] VITALS (16 sets, daily range): BP systolic 106–133; BP diastolic 62–84; TEMP 98–99.1; O2SAT 94–98
[2024-10-09 05:09] LABS: BASOPHILS % (AUTO) 0.2 % (0.0-2.0); EOSINOPHILS # (AUTO) 0.1 K/uL (0.0-0.7); HEMATOCRIT 26 % (33-45); HEMOGLOBIN 7.7 g/dL (11.5-14.8); MEAN CORPUSCULAR HEMOGLOBIN 22 PG (26.0-33.0); MEAN CORPUSCULAR HGB CONC 29 g/dl (31.0-36.0); MEAN CORPUSCULAR VOLUME 74 fL (82-100); MONOCYTES # (AUTO) 1.2 K/uL (0.1-1.30); NEUTROPHILS # (AUTO) 8.3 K/uL (1.8-8.9); NEUTROPHILS % (AUTO) 60.8 % (43.0-81.0); PLATELET COUNT (AUTO) 313 K/uL (150-450); RED BLOOD CELL COUNT(AUTO) 3.56 MIL/uL (4.0-5.2); RED CELL DISTRIBUTION WIDTH 18.9 % (11.5-15.0); WHITE BLOOD COUNT (AUTO) 13.7 K/uL (4.3-11.0)
[2024-10-09 05:20] LABS: CALCIUM, SERUM 8.2 mg/dL (8.5-10.1); CREATININE 0.8 mg/dL (0.6-1.3); POTASSIUM 3.3 mmol/L (3.5-5.1)
[2024-10-09 07:12] LABS: LYMPHOCYTES % (MANUAL) 33 % (16-48); METAMYELOCYTES % 1 % (0-0); MONOCYTES % (MANUAL) 5 % (0-11.0); MYELOCYTES % 1 % (0-0); NEUTROPHILS % (MANUAL) 60 (42-76)
[2024-10-09 07:13] LABS: HYPOCHROMASIA 1+
[2024-10-09 07:14] LABS: PLATELET ESTIMATE ADEQUATE
[2024-10-09 07:25] LABS: ANISOCYTOSIS 1+
[2024-10-09] MEDS: POTASSIUM CHLORIDE 20 MEQ TAB.PRT.SR PO SCH (09:51)
[2024-10-09] MEDS: IV NS 0.9% 1,000 ML IV SCH (09:52)
[2024-10-10] VITALS: BP 110/64; TEMP 98.6; O2SAT 98
[2024-10-10 04:00] VITALS: BP 110/70; TEMP 98.2; O2SAT 97
[2024-10-10 07:51] LABS: BASOPHILS % (AUTO) 0.3 % (0.0-2.0); EOSINOPHILS # (AUTO) 0.3 K/uL (0.0-0.7); EOSINOPHILS % (AUTO) 2.3 % (0.0-6.0); HEMATOCRIT 25 % (33-45); HEMOGLOBIN 7.4 g/dL (11.5-14.8); LYMPHOCYTES # (AUTO) 4.5 K/uL (0.8-4.8); LYMPHOCYTES % (AUTO) 37.6 % (20.0-44.0); MEAN CORPUSCULAR HEMOGLOBIN 22 PG (26.0-33.0); MEAN CORPUSCULAR HGB CONC 30 g/dl (31.0-36.0); MEAN CORPUSCULAR VOLUME 71 fL (82-100); MONOCYTES # (AUTO) 1.2 K/uL (0.1-1.30); MONOCYTES % (AUTO) 9.7 % (2.0-12.0); NEUTROPHILS # (AUTO) 5.9 K/uL (1.8-8.9); NEUTROPHILS % (AUTO) 50.1 % (43.0-81.0); PLATELET COUNT (AUTO) 463 K/uL (150-450); RED BLOOD CELL COUNT(AUTO) 3.47 MIL/uL (4.0-5.2); RED CELL DISTRIBUTION WIDTH 19.1 % (11.5-15.0); WHITE BLOOD COUNT (AUTO) 11.9 K/uL (4.3-11.0)
[2024-10-10 08:00] VITALS: BP 117/66; TEMP 98.8; O2SAT 95
[2024-10-10 08:09] LABS: CALCIUM, SERUM 8.1 mg/dL (8.5-10.1); CREATININE 0.6 mg/dL (0.6-1.3); POTASSIUM 3.4 mmol/L (3.5-5.1)
[2024-10-10 10:35] LABS: EOSINOPHILS % (MANUAL) 1 % (0-4); LYMPHOCYTES % (MANUAL) 28 % (16-48); MONOCYTES % (MANUAL) 6 % (0-11.0); NEUTROPHILS % (MANUAL) 65 (42-76)
[2024-10-10 10:36] LABS: ANISOCYTOSIS 1+; HYPOCHROMASIA 1+; PLATELET ESTIMATE INCREASED
[2024-10-10 10:37] LABS: OVALOCYTES 1+
[2024-10-10] MEDS: POTASSIUM CHLORIDE 20 MEQ TAB.PRT.SR PO ONE (10:46)
[2024-10-10 12:00] VITALS: BP 123/78; TEMP 98.1; O2SAT 96
[2024-10-10 16:00] VITALS: BP 117/60; TEMP 98.8; O2SAT 99
[2024-10-10 20:00] VITALS: BP 121/79; TEMP 98.8; O2SAT 100
[2024-10-11] VITALS (7 sets, daily range): BP systolic 114–129; BP diastolic 70–85; TEMP 97.7–98.6; O2SAT 94–98
[2024-10-11 06:25] LABS: BASOPHILS % (AUTO) 0.3 % (0.0-2.0); EOSINOPHILS # (AUTO) 0.2 K/uL (0.0-0.7); EOSINOPHILS % (AUTO) 2.4 % (0.0-6.0); HEMATOCRIT 24 % (33-45); HEMOGLOBIN 7.6 g/dL (11.5-14.8); LYMPHOCYTES # (AUTO) 4.1 K/uL (0.8-4.8); MEAN CORPUSCULAR HEMOGLOBIN 22 PG (26.0-33.0); MEAN CORPUSCULAR HGB CONC 31 g/dl (31.0-36.0); MEAN CORPUSCULAR VOLUME 72 fL (82-100); MONOCYTES # (AUTO) 1.1 K/uL (0.1-1.30); MONOCYTES % (AUTO) 10.7 % (2.0-12.0); NEUTROPHILS # (AUTO) 4.6 K/uL (1.8-8.9); NEUTROPHILS % (AUTO) 45.6 % (43.0-81.0); PLATELET COUNT (AUTO) 463 K/uL (150-450); RED BLOOD CELL COUNT(AUTO) 3.38 MIL/uL (4.0-5.2); WHITE BLOOD COUNT (AUTO) 10.1 K/uL (4.3-11.0)
[2024-10-11 07:00] LABS: CALCIUM, SERUM 8.3 mg/dL (8.5-10.1); CREATININE 0.8 mg/dL (0.6-1.3); POTASSIUM 3.5 mmol/L (3.5-5.1)
[2024-10-12] VITALS: BP 125/75; TEMP 98; O2SAT 95
[2024-10-12 04:00] VITALS: BP 108/61; TEMP 98.5; O2SAT 97
[2024-10-12 08:00] VITALS: BP 103/78; TEMP 98.5; O2SAT 93
[2024-10-12 08:37] LABS: BASOPHILS # (AUTO) 0.1 K/uL (0.0-0.2); BASOPHILS % (AUTO) 0.8 % (0.0-2.0); EOSINOPHILS # (AUTO) 0.3 K/uL (0.0-0.7); EOSINOPHILS % (AUTO) 2.1 % (0.0-6.0); HEMATOCRIT 27 % (33-45); LYMPHOCYTES # (AUTO) 4.4 K/uL (0.8-4.8); LYMPHOCYTES % (AUTO) 35.3 % (20.0-44.0); MEAN CORPUSCULAR HEMOGLOBIN 22 PG (26.0-33.0); MEAN CORPUSCULAR HGB CONC 29 g/dl (31.0-36.0); MEAN CORPUSCULAR VOLUME 74 fL (82-100); MONOCYTES % (AUTO) 8.4 % (2.0-12.0); NEUTROPHILS # (AUTO) 6.6 K/uL (1.8-8.9); NEUTROPHILS % (AUTO) 53.4 % (43.0-81.0); PLATELET COUNT (AUTO) 331 K/uL (150-450); RED BLOOD CELL COUNT(AUTO) 3.71 MIL/uL (4.0-5.2); RED CELL DISTRIBUTION WIDTH 19.3 % (11.5-15.0); WHITE BLOOD COUNT (AUTO) 12.4 K/uL (4.3-11.0)
[2024-10-12 08:59] LABS: CALCIUM, SERUM 8.7 mg/dL (8.5-10.1); CREATININE 0.7 mg/dL (0.6-1.3); POTASSIUM 3.9 mmol/L (3.5-5.1)
[2024-10-12 09:50] LABS: ANISOCYTOSIS 1+; BASOPHILS % (MANUAL) 0 % (0.0-2.0); EOSINOPHILS % (MANUAL) 1 % (0-4); LYMPHOCYTES % (MANUAL) 33 % (16-48); MONOCYTES % (MANUAL) 6 % (0-11.0); NEUTROPHILS % (MANUAL) 60 (42-76); PLATELET ESTIMATE ADEQUATE
[2024-10-12] MEDS: diphenhydrAMINE HCL 50 MG/ML VIAL IV ONE (11:49)
[2024-10-12 12:00] VITALS: BP 105/75; TEMP 99; O2SAT 94
[2024-10-12 16:00] VITALS: BP 101/70; TEMP 99.9; O2SAT 94
[2024-10-12] MEDS: SUMATRIPTAN SUCCINATE 25 MG TABLET PO PRN (17:41)
[2024-10-12 20:00] VITALS: BP 117/72; TEMP 98.2; O2SAT 95
[2024-10-13] VITALS (7 sets, daily range): BP systolic 102–116; BP diastolic 59–76; TEMP 98.1–98.8; O2SAT 95–97
[2024-10-13] MEDS: IV NS 0.9% 250 ML IV PRN (09:41)
[2024-10-14] VITALS (7 sets, daily range): BP systolic 101–129; BP diastolic 62–79; TEMP 97.8–99.1; O2SAT 93–98
[2024-10-14 06:45] LABS: CALCIUM, SERUM 8.9 mg/dL (8.5-10.1); CREATININE 0.9 mg/dL (0.6-1.3)
[2024-10-14 06:48] LABS: BASOPHILS # (AUTO) 0.1 K/uL (0.0-0.2); BASOPHILS % (AUTO) 0.8 % (0.0-2.0); EOSINOPHILS # (AUTO) 0.1 K/uL (0.0-0.7); EOSINOPHILS % (AUTO) 1.4 % (0.0-6.0); HEMATOCRIT 25 % (33-45); LYMPHOCYTES # (AUTO) 4.2 K/uL (0.8-4.8); MEAN CORPUSCULAR HEMOGLOBIN 23 PG (26.0-33.0); MEAN CORPUSCULAR HGB CONC 32 g/dl (31.0-36.0); MEAN CORPUSCULAR VOLUME 72 fL (82-100); MONOCYTES # (AUTO) 1.3 K/uL (0.1-1.30); MONOCYTES % (AUTO) 12.6 % (2.0-12.0); NEUTROPHILS # (AUTO) 4.7 K/uL (1.8-8.9); NEUTROPHILS % (AUTO) 45.2 % (43.0-81.0); PLATELET COUNT (AUTO) 571 K/uL (150-450); RED BLOOD CELL COUNT(AUTO) 3.52 MIL/uL (4.0-5.2); RED CELL DISTRIBUTION WIDTH 18.9 % (11.5-15.0); WHITE BLOOD COUNT (AUTO) 10.4 K/uL (4.3-11.0)
[2024-10-14] MEDS: ONDANSETRON HCL/PF 4 MG/2 ML VIAL IVP PRN (11:20)
[2024-10-14] MEDS: APIXABAN 5 MG TABLET PO SCH (14:56)
[2024-10-15] VITALS: BP 111/67; TEMP 99; O2SAT 93
[2024-10-15 04:00] VITALS: BP 112/70; TEMP 99; O2SAT 92
[2024-10-15 08:00] VITALS: BP 128/75; TEMP 98.3; O2SAT 95
[2024-10-15 12:00] VITALS: BP 129/65; TEMP 98.5; O2SAT 95
[2024-10-15] MEDS: diphenhydrAMINE HCL 50 MG/ML VIAL IV ONE (12:58)
[2024-10-15 16:00] VITALS: BP 125/64; TEMP 98.5; O2SAT 97
[2024-10-15 20:00] VITALS: BP 118/73; TEMP 98.6; O2SAT 97
[2024-10-16] VITALS: BP_SYST 109; BP_SYST 112; BP_DIAS 71; BP_DIAS 79; TEMP 98.1; TEMP 98.4; O2SAT 96
[2024-10-16 04:00] VITALS: BP 116/71; TEMP 98.1; O2SAT 97
[2024-10-16 06:42] LABS: BASOPHILS # (AUTO) 0.1 K/uL (0.0-0.2); BASOPHILS % (AUTO) 0.8 % (0.0-2.0); EOSINOPHILS # (AUTO) 0.1 K/uL (0.0-0.7); EOSINOPHILS % (AUTO) 1.2 % (0.0-6.0); HEMATOCRIT 23 % (33-45); HEMOGLOBIN 7.1 g/dL (11.5-14.8); LYMPHOCYTES % (AUTO) 36.4 % (20.0-44.0); MEAN CORPUSCULAR HEMOGLOBIN 22 PG (26.0-33.0); MEAN CORPUSCULAR HGB CONC 31 g/dl (31.0-36.0); MEAN CORPUSCULAR VOLUME 72 fL (82-100); MONOCYTES # (AUTO) 1.3 K/uL (0.1-1.30); MONOCYTES % (AUTO) 11.5 % (2.0-12.0); NEUTROPHILS # (AUTO) 5.6 K/uL (1.8-8.9); NEUTROPHILS % (AUTO) 50.1 % (43.0-81.0); PLATELET COUNT (AUTO) 542 K/uL (150-450); RED BLOOD CELL COUNT(AUTO) 3.23 MIL/uL (4.0-5.2); RED CELL DISTRIBUTION WIDTH 18.7 % (11.5-15.0); WHITE BLOOD COUNT (AUTO) 11.1 K/uL (4.3-11.0)
[2024-10-16 06:44] LABS: CALCIUM, SERUM 8.7 mg/dL (8.5-10.1); CREATININE 0.9 mg/dL (0.6-1.3); POTASSIUM 4.2 mmol/L (3.5-5.1)
[2024-10-16 08:00] VITALS: BP 127/73; TEMP 98; O2SAT 97
[2024-10-16 12:00] VITALS: BP 118/74; TEMP 98.5; O2SAT 97
[2024-10-16] MEDS: FERROUS SULFATE (325 MG) 325 MG/TAB TABLET PO SCH (12:24)
[2024-10-16] MEDS ORDERED: SOD FERRIC GLUC 125 MG in IV NS 0.9% 100 ML IV SCH (14:00)
[2024-10-16] MEDS: EPINEPHRINE (1:1000) 1 MG/ML AMPUL IM PRN (14:03)
[2024-10-16 16:00] VITALS: BP 129/68; TEMP 99; O2SAT 97
[2024-10-16 20:00] VITALS: BP 119/72; TEMP 98.3; O2SAT 97
[2024-10-16 20:36] LABS: HEMOGLOBIN 7.3 g/dL (11.5-14.8)
[2024-10-17] VITALS: BP 112/79; TEMP 98.8; O2SAT 99
[2024-10-17 04:00] VITALS: BP 126/76; TEMP 98.2; O2SAT 99
[2024-10-17 07:29] LABS: HEMOGLOBIN 7.1 g/dL (11.5-14.8)
[2024-10-17 09:00] VITALS: BP 111/67; TEMP 98.3; O2SAT 97
[2024-10-17 12:00] VITALS: BP 116/70; TEMP 99.5; O2SAT 97
[2024-10-17 16:00] VITALS: BP 114/74; TEMP 98.5; O2SAT 96
[2024-10-17 18:28] LABS: THYROID STIMULATING HORMONE 1.22 uIU/mL (0.358-3.74)
[2024-10-17 18:39] LABS: BILIRUBIN,DIRECT 0.1 mg/dL (0.0-0.2); BILIRUBIN,TOTAL 0.3 mg/dL (0.2-1.0)
[2024-10-17 20:00] VITALS: BP 129/77; TEMP 100.5; O2SAT 98
[2024-10-17 21:01] LABS: BASOPHILS # (AUTO) 0.1 K/uL (0.0-0.2); BASOPHILS % (AUTO) 0.7 % (0.0-2.0); EOSINOPHILS # (AUTO) 0.1 K/uL (0.0-0.7); HEMATOCRIT 24 % (33-45); HEMOGLOBIN 7.2 g/dL (11.5-14.8); LYMPHOCYTES # (AUTO) 4.8 K/uL (0.8-4.8); LYMPHOCYTES % (AUTO) 35.2 % (20.0-44.0); MEAN CORPUSCULAR HEMOGLOBIN 22 PG (26.0-33.0); MEAN CORPUSCULAR HGB CONC 31 g/dl (31.0-36.0); MEAN CORPUSCULAR VOLUME 71 fL (82-100); MONOCYTES # (AUTO) 1.1 K/uL (0.1-1.30); MONOCYTES % (AUTO) 7.9 % (2.0-12.0); NEUTROPHILS # (AUTO) 7.5 K/uL (1.8-8.9); NEUTROPHILS % (AUTO) 55.2 % (43.0-81.0); PLATELET COUNT (AUTO) 544 K/uL (150-450); RED BLOOD CELL COUNT(AUTO) 3.36 MIL/uL (4.0-5.2); RED CELL DISTRIBUTION WIDTH 19.2 % (11.5-15.0); RETICULOCYTE COUNT 2.7 % (0.6-2.5); WHITE BLOOD COUNT (AUTO) 13.6 K/uL (4.3-11.0)
[2024-10-17 21:22] LABS: RHEUMATOID FACTOR SCREEN NEGATIVE (NEGATIVE)
[2024-10-18] VITALS: BP 121/65; TEMP 99.7; O2SAT 98
[2024-10-18 04:00] VITALS: BP 131/76; TEMP 98.8; O2SAT 98
[2024-10-18 07:36] LABS: BASOPHILS # (AUTO) 0.1 K/uL (0.0-0.2); BASOPHILS % (AUTO) 0.7 % (0.0-2.0); EOSINOPHILS # (AUTO) 0.1 K/uL (0.0-0.7); EOSINOPHILS % (AUTO) 0.8 % (0.0-6.0); HEMATOCRIT 23 % (33-45); HEMOGLOBIN 7.1 g/dL (11.5-14.8); LYMPHOCYTES # (AUTO) 4.3 K/uL (0.8-4.8); LYMPHOCYTES % (AUTO) 32.3 % (20.0-44.0); MEAN CORPUSCULAR HEMOGLOBIN 22 PG (26.0-33.0); MEAN CORPUSCULAR HGB CONC 31 g/dl (31.0-36.0); MEAN CORPUSCULAR VOLUME 72 fL (82-100); MONOCYTES % (AUTO) 7.8 % (2.0-12.0); NEUTROPHILS # (AUTO) 7.7 K/uL (1.8-8.9); NEUTROPHILS % (AUTO) 58.4 % (43.0-81.0); PLATELET COUNT (AUTO) 547 K/uL (150-450); RED BLOOD CELL COUNT(AUTO) 3.17 MIL/uL (4.0-5.2); RED CELL DISTRIBUTION WIDTH 18.8 % (11.5-15.0); WHITE BLOOD COUNT (AUTO) 13.2 K/uL (4.3-11.0)
[2024-10-18 07:43] LABS: HEMOGLOBIN 7.1 g/dL (11.5-14.8)
[2024-10-18 08:00] VITALS: BP 107/63; TEMP 99.5; O2SAT 94
[2024-10-18] MEDS: APIXABAN 2.5 MG TABLET PO SCH (09:28)
[2024-10-18 12:00] VITALS: BP 115/78; TEMP 99.3; O2SAT 96
[2024-10-18 13:29] LABS: HIV-1 p24 ANTIGEN NON REACTIVE (NONREACTIVE); HIV-1/2 ANTIBODY NON REACTIVE (NONREACTIVE)
[2024-10-18 16:00] VITALS: BP 117/77; TEMP 98.5; O2SAT 97
[2024-10-18 19:34] LABS: HEMOGLOBIN 6.8 g/dL (11.5-14.8)
[2024-10-18 20:00] VITALS: BP 123/78; TEMP 101.2; O2SAT 97
[2024-10-19] VITALS: BP 123/65; TEMP 99.9; O2SAT 95
[2024-10-19 04:00] VITALS: BP 115/79; TEMP 99; O2SAT 95
[2024-10-19 07:09] LABS: HEPATITIS B SURFACE AB Non Reactive (.)
[2024-10-19 08:00] VITALS: BP 122/66; TEMP 97.3; O2SAT 93
[2024-10-19 08:07] LABS: IMMUNOGLOBULIN A, SERUM 514 mg/dL (87-352); IMMUNOGLOBULIN G, SERUM 2562 mg/dL (586-1602); IMMUNOGLOBULIN M, SERUM 77 mg/dL (26-217)
[2024-10-19 08:10] LABS: HEMOGLOBIN 6.7 g/dL (11.5-14.8)
[2024-10-19 11:07] LABS: *ANA ANTI-CENTROMERE B AB <0.2 AI (0.0-0.9); *ANA ANTI-DNA(DS) AB, QN <1 IU/mL (0-9); *ANA ANTI-JO-1 <0.2 AI (0.0-0.9); *ANA ANTICHROMATIN ANTIBODY <0.2 AI (0.0-0.9); *ANA RNP ANTIBODIES <0.2 AI (0.0-0.9); *ANA SJOGREN'S ANTI-SS-A <0.2 AI (0.0-0.9); *ANA SJOGREN'S ANTI-SS-B <0.2 AI (0.0-0.9); *ANAANTI-SCLERODERMA-70 AB <0.2 AI (0.0-0.9); *ANASMITH AB <0.2 AI (0.0-0.9)
[2024-10-19] MEDS: FOLIC ACID 1 MG TABLET PO SCH (13:04)
[2024-10-19 13:07] LABS: FREE KAPPA LT CHAINS SERUM 74.7 mg/L (3.3-19.4); FREE LAMBDA LT CHAIN SERUM 58.2 mg/L (5.7-26.3); KAPPA/LAMBDA RATIO SERUM 1.28 (0.26-1.65)
[2024-10-19] MEDS: HYDROMORPHONE 1 MG/1 ML DISP.SYRIN IV PRN (14:31)
[2024-10-19 16:00] VITALS: BP 135/78; TEMP 98.8; O2SAT 96
[2024-10-19 20:00] VITALS: BP 111/66; TEMP 99.9; O2SAT 98
[2024-10-20] VITALS: BP 115/68; TEMP 98.1
[2024-10-20 04:00] VITALS: BP 106/73; TEMP 98.2; O2SAT 96
[2024-10-20 08:00] VITALS: BP 124/78; TEMP 98.4; O2SAT 96
[2024-10-20] MEDS: CEFTRIAXONE 2 G in IV D5W 100 ML IV SCH (08:35)
[2024-10-20 08:50] LABS: BASOPHILS # (AUTO) 0.1 K/uL (0.0-0.2); BASOPHILS % (AUTO) 0.7 % (0.0-2.0); EOSINOPHILS # (AUTO) 0.1 K/uL (0.0-0.7); HEMATOCRIT 24 % (33-45); LYMPHOCYTES # (AUTO) 3.4 K/uL (0.8-4.8); LYMPHOCYTES % (AUTO) 30.3 % (20.0-44.0); MEAN CORPUSCULAR HEMOGLOBIN 22 PG (26.0-33.0); MEAN CORPUSCULAR HGB CONC 29 g/dl (31.0-36.0); MEAN CORPUSCULAR VOLUME 76 fL (82-100); MONOCYTES % (AUTO) 8.7 % (2.0-12.0); NEUTROPHILS # (AUTO) 6.7 K/uL (1.8-8.9); NEUTROPHILS % (AUTO) 59.3 % (43.0-81.0); PLATELET COUNT (AUTO) 417 K/uL (150-450); RED BLOOD CELL COUNT(AUTO) 3.14 MIL/uL (4.0-5.2); RED CELL DISTRIBUTION WIDTH 19.4 % (11.5-15.0); WHITE BLOOD COUNT (AUTO) 11.4 K/uL (4.3-11.0)
[2024-10-20] MEDS ORDERED: CEFTRIAXONE 2 G in IV D5W 50 ML IV SCH (09:00)
[2024-10-20 12:00] VITALS: BP 111/76; TEMP 100.9; O2SAT 96
[2024-10-20 16:00] VITALS: BP 101/74; TEMP 100.4; O2SAT 96
[2024-10-20 20:00] VITALS: BP 113/75; TEMP 99.5; O2SAT 98
[2024-10-20 20:31] LABS: HEMOGLOBIN 7.4 g/dL (11.5-14.8)
[2024-10-21] VITALS: BP 116/84; TEMP 99.9; O2SAT 96
[2024-10-21 04:00] VITALS: BP 119/81; TEMP 98.1; O2SAT 96
[2024-10-21 07:53] LABS: BASOPHILS # (AUTO) 0.1 K/uL (0.0-0.2); BASOPHILS % (AUTO) 0.5 % (0.0-2.0); EOSINOPHILS # (AUTO) 0.1 K/uL (0.0-0.7); EOSINOPHILS % (AUTO) 1.1 % (0.0-6.0); HEMATOCRIT 23 % (33-45); HEMOGLOBIN 7.1 g/dL (11.5-14.8); LYMPHOCYTES # (AUTO) 3.8 K/uL (0.8-4.8); LYMPHOCYTES % (AUTO) 31.4 % (20.0-44.0); MEAN CORPUSCULAR HEMOGLOBIN 22 PG (26.0-33.0); MEAN CORPUSCULAR HGB CONC 31 g/dl (31.0-36.0); MEAN CORPUSCULAR VOLUME 71 fL (82-100); MONOCYTES # (AUTO) 1.1 K/uL (0.1-1.30); MONOCYTES % (AUTO) 9.4 % (2.0-12.0); NEUTROPHILS # (AUTO) 6.9 K/uL (1.8-8.9); NEUTROPHILS % (AUTO) 57.6 % (43.0-81.0); PLATELET COUNT (AUTO) 409 K/uL (150-450); RED BLOOD CELL COUNT(AUTO) 3.18 MIL/uL (4.0-5.2); RED CELL DISTRIBUTION WIDTH 18.7 % (11.5-15.0); WHITE BLOOD COUNT (AUTO) 11.9 K/uL (4.3-11.0)
[2024-10-21 08:00] VITALS: BP 116/77; TEMP 98.2; O2SAT 96
[2024-10-21 08:17] LABS: CREATININE 0.9 mg/dL (0.6-1.3); MAGNESIUM 1.9 mg/dL (1.8-2.4); PHOSPHORUS 5.7 mg/dL (2.5-4.9); POTASSIUM 3.6 mmol/L (3.5-5.1)
[2024-10-21 12:00] VITALS: BP 117/79; TEMP 98.2; O2SAT 96
[2024-10-21 16:00] VITALS: BP 111/84; TEMP 98.2; O2SAT 96
[2024-10-21] MEDS: CYANOCOBALAMIN 1,000 MCG/ML VIAL IM SCH (18:20)
[2024-10-21 20:00] VITALS: BP 113/78; TEMP 99; O2SAT 96
[2024-10-22] VITALS (9 sets, daily range): BP systolic 108–141; BP diastolic 62–78; TEMP 98.2–100; O2SAT 92–100
[2024-10-22 09:01] LABS: BASOPHILS # (AUTO) 0.1 K/uL (0.0-0.2); BASOPHILS % (AUTO) 0.5 % (0.0-2.0); EOSINOPHILS # (AUTO) 0.2 K/uL (0.0-0.7); EOSINOPHILS % (AUTO) 1.5 % (0.0-6.0); HEMATOCRIT 23 % (33-45); LYMPHOCYTES # (AUTO) 3.6 K/uL (0.8-4.8); LYMPHOCYTES % (AUTO) 30.8 % (20.0-44.0); MEAN CORPUSCULAR HEMOGLOBIN 22 PG (26.0-33.0); MEAN CORPUSCULAR HGB CONC 31 g/dl (31.0-36.0); MEAN CORPUSCULAR VOLUME 72 fL (82-100); MONOCYTES % (AUTO) 8.5 % (2.0-12.0); NEUTROPHILS # (AUTO) 6.9 K/uL (1.8-8.9); NEUTROPHILS % (AUTO) 58.7 % (43.0-81.0); PLATELET COUNT (AUTO) 402 K/uL (150-450); RED BLOOD CELL COUNT(AUTO) 3.21 MIL/uL (4.0-5.2); WHITE BLOOD COUNT (AUTO) 11.8 K/uL (4.3-11.0)
[2024-10-22 10:06] LABS: INR 1.09 (0.91-1.10); PROTHROMBIN TIME 11.5 SECS (9.2-11.1)
[2024-10-22 11:04] LABS: EOSINOPHILS % (MANUAL) 2 % (0-4); LYMPHOCYTES % (MANUAL) 33 % (16-48); MONOCYTES % (MANUAL) 8 % (0-11.0); NEUTROPHILS % (MANUAL) 57 (42-76)
[2024-10-22 11:05] LABS: ANISOCYTOSIS 1+; HYPOCHROMASIA 1+; PLATELET ESTIMATE ADEQUATE
[2024-10-22 11:06] LABS: STOMATOCYTES 1+
[2024-10-22] MEDS: LIDOCAINE 100MG/5ML DISP SYR ONE (12:55)
[2024-10-22 15:09] LABS: METHYLMALONIC ACID 219 nmol/L (0-378)
[2024-10-22] MEDS ORDERED: ANESTHESIA TRAY IN PYXIS 1 EA TRAY MC ONE (15:22)
[2024-10-22] MEDS: PANTOPRAZOLE 40 MG VIAL IV SCH (17:07)
[2024-10-22 19:07] LABS: *SPE A/G RATIO 0.5 (0.7-1.7); *SPE ALBUMIN 2.5 g/dL (2.9-4.4); *SPE ALPHA-1-GLOBULIN 0.3 g/dL (0.0-0.4); *SPE ALPHA-2-GLOBULIN 1.1 g/dL (0.4-1.0); *SPE BETA GLOBULIN 1.2 g/dL (0.7-1.3); *SPE GLOBULIN, TOTAL 5.2 g/dL (2.2-3.9); *SPE M-SPIKE Not Observed g/dL (Not Observed); *SPE PROTEIN TOTAL 7.7 g/dL (6.0-8.5); *SPEGAMMA GLOBULIN 2.5 g/dL (0.4-1.8)
[2024-10-22 19:31] LABS: HEMOGLOBIN 6.7 g/dL (11.5-14.8)
[2024-10-23] VITALS: BP 132/79; TEMP 98.6; O2SAT 91
[2024-10-23 04:00] VITALS: BP 126/74; TEMP 98.4; O2SAT 94
[2024-10-23 07:53] LABS: BASOPHILS # (AUTO) 0.1 K/uL (0.0-0.2); BASOPHILS % (AUTO) 0.7 % (0.0-2.0); EOSINOPHILS # (AUTO) 0.2 K/uL (0.0-0.7); EOSINOPHILS % (AUTO) 2.1 % (0.0-6.0); HEMATOCRIT 21 % (33-45); LYMPHOCYTES # (AUTO) 3.4 K/uL (0.8-4.8); LYMPHOCYTES % (AUTO) 32.2 % (20.0-44.0); MEAN CORPUSCULAR HEMOGLOBIN 23 PG (26.0-33.0); MEAN CORPUSCULAR HGB CONC 32 g/dl (31.0-36.0); MEAN CORPUSCULAR VOLUME 71 fL (82-100); MONOCYTES % (AUTO) 9.2 % (2.0-12.0); NEUTROPHILS # (AUTO) 5.9 K/uL (1.8-8.9); NEUTROPHILS % (AUTO) 55.8 % (43.0-81.0); PLATELET COUNT (AUTO) 362 K/uL (150-450); RED BLOOD CELL COUNT(AUTO) 2.95 MIL/uL (4.0-5.2); WHITE BLOOD COUNT (AUTO) 10.6 K/uL (4.3-11.0)
[2024-10-23 08:00] VITALS: BP 114/71; TEMP 100; O2SAT 100
[2024-10-23 08:02] LABS: HEMOGLOBIN 6.6 g/dL (11.5-14.8)
[2024-10-23 12:00] VITALS: BP 120/80; TEMP 97.9; O2SAT 100
[2024-10-23 12:01] LABS: ANISOCYTOSIS 1+; HYPOCHROMASIA 1+; PLATELET ESTIMATE ADEQUATE; STOMATOCYTES 1+
[2024-10-23 12:02] LABS: EOSINOPHILS % (MANUAL) 1 % (0-4); LYMPHOCYTES % (MANUAL) 28 % (16-48); MONOCYTES % (MANUAL) 10 % (0-11.0); NEUTROPHILS % (MANUAL) 61 (42-76)
[2024-10-23] MEDS: THERAHONEY GEL 1.5 OZ TUBE TP SCH (12:30)
[2024-10-23 16:00] VITALS: BP 128/76; TEMP 98.6; O2SAT 100
[2024-10-23 20:00] VITALS: BP 118/72; TEMP 98.4; O2SAT 100
[2024-10-23] MEDS: HEPARIN-LOCK FLUSH PORCINE PF 10 UNITS/1 ML (10 ML)DISP.SYRIN IV SCH (21:00)
[2024-10-23 21:18] LABS: HEMOGLOBIN 6.6 g/dL (11.5-14.8)
[2024-10-24] VITALS: BP 118/72; TEMP 98.4; O2SAT 100
[2024-10-24 04:00] VITALS: BP 117/69; TEMP 99; O2SAT 95
[2024-10-24 04:10] LABS: *BASOS 1 % (Not Estab.); *BASOS, ABSOLUTE 0.1 x10E3/uL (0.0-0.2); *EOS 2 % (Not Estab.); *EOS, ABSOLUTE 0.2 x10E3/uL (0.0-0.4); *HCT 23.7 % (34.0-46.6); *HGB 6.7 g/dL (11.1-15.9); *IMMATURE GRANULOCYTES 2 % (Not Estab.); *IMMATURE GRANULOCYTES(ABS) 0.2 x10E3/uL (0.0-0.1); *LYMPHOCYTES 33 % (Not Estab.); *LYMPHS, ABSOLUTE 3.7 x10E3/uL (0.7-3.1); *MCH 21.5 pg (26.6-33.0); *MCHC 28.3 g/dL (31.5-35.7); *MCV 76 fL (79-97); *MONOCYTES 9 % (Not Estab.); *NEUTROPHILS 53 % (Not Estab.); *NEUTROPHILS, ABSOLUTE 5.9 x10E3/uL (1.4-7.0); *PLT 399 x10E3/uL (150-450); *RBC 3.11 x10E6/uL (3.77-5.28); *RDW 16.9 % (11.7-15.4)
[2024-10-24 08:00] VITALS: BP 130/82; TEMP 98; O2SAT 94
[2024-10-24 12:17] LABS: BASOPHILS # (AUTO) 0.1 K/uL (0.0-0.2); BASOPHILS % (AUTO) 0.6 % (0.0-2.0); EOSINOPHILS # (AUTO) 0.2 K/uL (0.0-0.7); EOSINOPHILS % (AUTO) 1.9 % (0.0-6.0); HEMATOCRIT 22 % (33-45); LYMPHOCYTES # (AUTO) 3.1 K/uL (0.8-4.8); LYMPHOCYTES % (AUTO) 28.3 % (20.0-44.0); MEAN CORPUSCULAR HEMOGLOBIN 22 PG (26.0-33.0); MEAN CORPUSCULAR HGB CONC 31 g/dl (31.0-36.0); MEAN CORPUSCULAR VOLUME 72 fL (82-100); MONOCYTES % (AUTO) 9.5 % (2.0-12.0); NEUTROPHILS # (AUTO) 6.6 K/uL (1.8-8.9); NEUTROPHILS % (AUTO) 59.7 % (43.0-81.0); PLATELET COUNT (AUTO) 367 K/uL (150-450); RED BLOOD CELL COUNT(AUTO) 2.99 MIL/uL (4.0-5.2); RED CELL DISTRIBUTION WIDTH 18.9 % (11.5-15.0)
[2024-10-24 12:27] LABS: HEMOGLOBIN 6.6 g/dL (11.5-14.8)
[2024-10-24 13:56] LABS: ANISOCYTOSIS 1+; EOSINOPHILS % (MANUAL) 2 % (0-4); HYPOCHROMASIA 1+; LYMPHOCYTES % (MANUAL) 28 % (16-48); MONOCYTES % (MANUAL) 7 % (0-11.0); MYELOCYTES % 1 % (0-0); NEUTROPHILS % (MANUAL) 62 (42-76); PLATELET ESTIMATE ADEQUATE
[2024-10-24 13:57] LABS: STOMATOCYTES 1+
[2024-10-24 15:18] LABS: APPEARANCE,URINE CLEAR (CLEAR); BILIRUBIN,URINE NEGATIVE (NEGATIVE); BLOOD, URINE TRACE-INTA Ery/uL (NEGATIVE); COLOR,URINE YELLOW (YELLOW); KETONES,URINE NEGATIVE (NEGATIVE); LEUKOCYTE ESTERASE ,URINE NEGATIVE (NEGATIVE); NITRITE, URINE NEGATIVE (NEGATIVE); PH,URINE 6.5 (5.0-8.0); PROTEIN,URINE NEGATIVE (NEGATIVE); UGLUCOSE NEGATIVE (NEGATIVE); UROBILINOGEN,URINE 0.2 EU/dL (0.2)
[2024-10-24 15:56] LABS: ADD URINE CULTURE NO; BACTERIA,URINE Few /HPF (None Seen); SQUAMOUS EPITHELIAL CELL,UR Few /HPF (None Seen); WBC,URINE 0-2 /HPF (0-3)
[2024-10-24 16:06] LABS: *% CD 8 POS. LYMPH 57.2 % (12.0-35.5); *ABSOLUTE CD 4 HELPER 1184 /uL (359-1519); *ABSOLUTE CD 8 SUPPRESSOR 2116 /uL (109-897); *CD4/CD8 RATIO 0.56 (0.92-3.72)
[2024-10-24 17:14] VITALS: BP 135/87; TEMP 98.5; O2SAT 96
[2024-10-24] MEDS: ENSURE ENLIVE 237 ML LIQUID (VANILLA) PO SCH (17:19)
[2024-10-24 18:14] VITALS: BP 134/84; TEMP 98.3; O2SAT 95
[2024-10-24 20:26] LABS: HEMOGLOBIN 6.4 g/dL (11.5-14.8)
[2024-10-24] MEDS: FAMOTIDINE/PF INJ 20 MG/2 ML VIAL IV ONE (22:42)
[2024-10-24] MEDS: diphenhydrAMINE HCL 50 MG/ML VIAL IV ONE (22:42)
[2024-10-24] MEDS: methylPREDNISolone SOD SUCC 125 MG/2ML VIAL IV ONE (22:43)
[2024-10-25] VITALS (11 sets, daily range): BP systolic 108–146; BP diastolic 69–92; TEMP 97.3–99.1; O2SAT 96–98
[2024-10-25 08:28] LABS: BASOPHILS # (AUTO) 0.1 K/uL (0.0-0.2); BASOPHILS % (AUTO) 0.5 % (0.0-2.0); EOSINOPHILS % (AUTO) 0.1 % (0.0-6.0); HEMATOCRIT 27 % (33-45); HEMOGLOBIN 8.3 g/dL (11.5-14.8); LYMPHOCYTES # (AUTO) 3.3 K/uL (0.8-4.8); MEAN CORPUSCULAR HEMOGLOBIN 23 PG (26.0-33.0); MEAN CORPUSCULAR HGB CONC 31 g/dl (31.0-36.0); MEAN CORPUSCULAR VOLUME 74 fL (82-100); MONOCYTES # (AUTO) 0.1 K/uL (0.1-1.30); NEUTROPHILS # (AUTO) 11.3 K/uL (1.8-8.9); NEUTROPHILS % (AUTO) 76.4 % (43.0-81.0); PLATELET COUNT (AUTO) 404 K/uL (150-450); RED BLOOD CELL COUNT(AUTO) 3.62 MIL/uL (4.0-5.2); RED CELL DISTRIBUTION WIDTH 19.3 % (11.5-15.0); WHITE BLOOD COUNT (AUTO) 14.8 K/uL (4.3-11.0)
[2024-10-25] MEDS: IV NS 0.9% 250 ML IV SCH (11:08)
[2024-10-25 11:16] LABS: BAND % (MANUAL) 2 % (0.0-5.0); LYMPHOCYTES % (MANUAL) 25 % (16-48); MONOCYTES % (MANUAL) 1 % (0-11.0); MYELOCYTES % 1 % (0-0); NEUTROPHILS % (MANUAL) 71 (42-76)
[2024-10-25 11:17] LABS: ANISOCYTOSIS 1+; PLATELET ESTIMATE ADEQUATE; STOMATOCYTES 1+
[2024-10-25] MEDS: PANTOPRAZOLE 40 MG TABLET.DR PO SCH (17:43)
[2024-10-25 19:49] LABS: HEMOGLOBIN 8.2 g/dL (11.5-14.8)
[2024-10-25] MEDS: HEPARIN SODIUM, PORCINE 5000 UNITS/1 ML VIAL SQ SCH (21:02)
[2024-10-26] VITALS: BP 138/80; TEMP 98.4; O2SAT 96
[2024-10-26 04:00] VITALS: BP 130/80; TEMP 97.5; O2SAT 97
[2024-10-26 08:00] VITALS: BP 132/81; TEMP 98.2; O2SAT 98
[2024-10-26 08:18] LABS: CALCIUM, SERUM 8.5 mg/dL (8.5-10.1); CREATININE 0.7 mg/dL (0.6-1.3); POTASSIUM 3.7 mmol/L (3.5-5.1)
[2024-10-26 08:22] LABS: BASOPHILS % (AUTO) 0.3 % (0.0-2.0); HEMATOCRIT 27 % (33-45); HEMOGLOBIN 8.2 g/dL (11.5-14.8); LYMPHOCYTES # (AUTO) 3.7 K/uL (0.8-4.8); LYMPHOCYTES % (AUTO) 24.1 % (20.0-44.0); MEAN CORPUSCULAR HEMOGLOBIN 23 PG (26.0-33.0); MEAN CORPUSCULAR HGB CONC 30 g/dl (31.0-36.0); MEAN CORPUSCULAR VOLUME 75 fL (82-100); MONOCYTES # (AUTO) 1.1 K/uL (0.1-1.30); MONOCYTES % (AUTO) 7.5 % (2.0-12.0); NEUTROPHILS # (AUTO) 10.3 K/uL (1.8-8.9); NEUTROPHILS % (AUTO) 68.1 % (43.0-81.0); PLATELET COUNT (AUTO) 413 K/uL (150-450); RED CELL DISTRIBUTION WIDTH 19.3 % (11.5-15.0); WHITE BLOOD COUNT (AUTO) 15.2 K/uL (4.3-11.0)
[2024-10-26 11:34] LABS: BASOPHILS % (MANUAL) 0 % (0.0-2.0); EOSINOPHILS % (MANUAL) 0 % (0-4); LYMPHOCYTES % (MANUAL) 21 % (16-48); MONOCYTES % (MANUAL) 7 % (0-11.0); NEUTROPHILS % (MANUAL) 72 (42-76)
[2024-10-26 11:35] LABS: ANISOCYTOSIS 1+; PLATELET ESTIMATE ADEQUATE
[2024-10-26 12:00] VITALS: BP 128/78; TEMP 97.7; O2SAT 97
[2024-10-26] MEDS: methylPREDNISolone SOD SUCC 125 MG/2ML VIAL IV ONE (12:27)
[2024-10-26] MEDS: FAMOTIDINE/PF INJ 20 MG/2 ML VIAL IV ONE (12:27)
[2024-10-26] MEDS ORDERED: methylPREDNISolone DOSPAK(4MG) 1 PACK TAB.DS.PK PO ONE (12:30)
[2024-10-26 16:00] VITALS: BP 134/79; TEMP 98.2; O2SAT 97
[2024-10-26 20:00] VITALS: BP 129/85; TEMP 98.2; O2SAT 95
[2024-10-27] VITALS (7 sets, daily range): BP systolic 116–141; BP diastolic 77–105; TEMP 97.7–98.2; O2SAT 94–100
[2024-10-27] MEDS: methylPREDNISolone (4MG) 4 MG TABLET (DAY #1 ) PO ONE (08:40)
[2024-10-27] MEDS: methylPREDNISolone (4MG) 4 MG TABLET (DAY #1, PC LUNCH) PO ONE (11:43)
[2024-10-27 14:52] LABS: BASOPHILS % (AUTO) 0.1 % (0.0-2.0); HEMATOCRIT 28 % (33-45); HEMOGLOBIN 8.8 g/dL (11.5-14.8); LYMPHOCYTES # (AUTO) 3.1 K/uL (0.8-4.8); LYMPHOCYTES % (AUTO) 17.9 % (20.0-44.0); MEAN CORPUSCULAR HEMOGLOBIN 23 PG (26.0-33.0); MEAN CORPUSCULAR HGB CONC 31 g/dl (31.0-36.0); MEAN CORPUSCULAR VOLUME 74 fL (82-100); MONOCYTES # (AUTO) 0.8 K/uL (0.1-1.30); MONOCYTES % (AUTO) 4.3 % (2.0-12.0); NEUTROPHILS # (AUTO) 13.5 K/uL (1.8-8.9); NEUTROPHILS % (AUTO) 77.7 % (43.0-81.0); PLATELET COUNT (AUTO) 526 K/uL (150-450); RED BLOOD CELL COUNT(AUTO) 3.77 MIL/uL (4.0-5.2); RED CELL DISTRIBUTION WIDTH 19.9 % (11.5-15.0); WHITE BLOOD COUNT (AUTO) 17.4 K/uL (4.3-11.0)
[2024-10-27 15:21] LABS: BAND % (MANUAL) 2 % (0.0-5.0); LYMPHOCYTES % (MANUAL) 25 % (16-48); MONOCYTES % (MANUAL) 1 % (0-11.0); NEUTROPHILS % (MANUAL) 72 (42-76); PLATELET ESTIMATE INCREASED
[2024-10-27 15:22] LABS: ANISOCYTOSIS 1+; STOMATOCYTES 1+
[2024-10-27] MEDS: methylPREDNISolone (4MG) 4 MG TABLET (DAY #1 PC DINNER) PO ONE (16:35)
[2024-10-27] MEDS: diphenhydrAMINE HCL 50 MG/ML VIAL IV ONE (20:32)
[2024-10-27] MEDS: methylPREDNISolone (4MG) 4 MG TABLET (DAY1,HS) PO ONE (22:17)
[2024-10-28] VITALS: BP_SYST 129; BP_SYST 137; BP_DIAS 76; BP_DIAS 91; TEMP 97.7; TEMP 98.4; O2SAT 100
[2024-10-28 04:00] VITALS: BP 127/78; TEMP 98.4; O2SAT 95
[2024-10-28] MEDS: methylPREDNISolone (4MG) 4 MG TABLET (DAY#2 ACB) PO ONE (07:58)
[2024-10-28 08:00] VITALS: BP 135/75; TEMP 98.2; O2SAT 94
[2024-10-28 08:39] LABS: BASOPHILS % (AUTO) 0.2 % (0.0-2.0); EOSINOPHILS % (AUTO) 0.1 % (0.0-6.0); HEMATOCRIT 31 % (33-45); HEMOGLOBIN 9.2 g/dL (11.5-14.8); LYMPHOCYTES # (AUTO) 3.4 K/uL (0.8-4.8); LYMPHOCYTES % (AUTO) 20.4 % (20.0-44.0); MEAN CORPUSCULAR HEMOGLOBIN 23 PG (26.0-33.0); MEAN CORPUSCULAR HGB CONC 30 g/dl (31.0-36.0); MEAN CORPUSCULAR VOLUME 75 fL (82-100); MONOCYTES # (AUTO) 0.9 K/uL (0.1-1.30); MONOCYTES % (AUTO) 5.2 % (2.0-12.0); NEUTROPHILS # (AUTO) 12.2 K/uL (1.8-8.9); NEUTROPHILS % (AUTO) 74.1 % (43.0-81.0); PLATELET COUNT (AUTO) 523 K/uL (150-450); RED BLOOD CELL COUNT(AUTO) 4.06 MIL/uL (4.0-5.2); RED CELL DISTRIBUTION WIDTH 19.9 % (11.5-15.0); WHITE BLOOD COUNT (AUTO) 16.5 K/uL (4.3-11.0)
[2024-10-28 09:01] LABS: CALCIUM, SERUM 8.6 mg/dL (8.5-10.1); CREATININE 0.7 mg/dL (0.6-1.3); MAGNESIUM 2.2 mg/dL (1.8-2.4); PHOSPHORUS 4.2 mg/dL (2.5-4.9)
[2024-10-28 11:38] LABS: ANISOCYTOSIS 1+; LYMPHOCYTES % (MANUAL) 18 % (16-48); METAMYELOCYTES % 2 % (0-0); MONOCYTES % (MANUAL) 5 % (0-11.0); NEUTROPHILS % (MANUAL) 75 (42-76); PLATELET ESTIMATE ADEQUATE
[2024-10-28 12:00] VITALS: BP 133/85; TEMP 98.4; O2SAT 94
[2024-10-28] MEDS: methylPREDNISolone (4MG) 4 MG TABLET (DAY#2,PC LUNCH) PO ONE (13:00)
[2024-10-28] MEDS: diphenhydrAMINE HCL ELIX 25 MG/10 ML UDC PO STA (14:16)
[2024-10-28] MEDS: HEPARIN SODIUM, PORCINE 5000 UNITS/1 ML VIAL SQ SCH (14:25)
[2024-10-28 16:00] VITALS: BP 128/77; TEMP 98.4; O2SAT 97
[2024-10-28] MEDS: methylPREDNISolone (4MG) 4 MG TABLET (DAY#2, PC DINNER) PO ONE (17:03)
[2024-10-28 20:00] VITALS: BP 137/91; TEMP 97.7; O2SAT 97
[2024-10-28] MEDS: methylPREDNISolone (4MG) 4 MG TABLET (DAY#2, HS) PO ONE (21:02)
[2024-10-29] VITALS: BP_SYST 130; BP_SYST 134; BP_DIAS 73; BP_DIAS 86; TEMP 97.6; TEMP 97.7; O2SAT 95; O2SAT 97
[2024-10-29 04:00] VITALS: BP 142/95; TEMP 97.7; O2SAT 97
[2024-10-29] MEDS: methylPREDNISolone (4MG) 4 MG TABLET (DAY#3,ACB) PO ONE (07:37)
[2024-10-29 08:00] VITALS: BP 130/92; TEMP 98.4; O2SAT 98
[2024-10-29] MEDS ORDERED: IV NS 0.9% 250 ML IV PRN (08:51)
[2024-10-29 12:00] VITALS: BP 127/86; TEMP 99; O2SAT 99
[2024-10-29] MEDS: methylPREDNISolone (4MG) 4 MG TABLET (DAY#3,PC LUNCH) PO ONE (12:27)
[2024-10-29 16:00] VITALS: BP 130/82; TEMP 98.6; O2SAT 95
[2024-10-29] MEDS: methylPREDNISolone (4MG) 4 MG TABLET (DAY#3,PC DINNER) PO ONE (17:06)
[2024-10-29 20:00] VITALS: BP 131/80; TEMP 98.6; O2SAT 96
[2024-10-29] MEDS: methylPREDNISolone (4MG) 4 MG TABLET (DAY#3, HS) PO ONE (21:08)
[2024-10-30] VITALS: BP 117/77; TEMP 97.6; O2SAT 96
[2024-10-30 04:00] VITALS: BP 128/73; TEMP 98.2; O2SAT 93
[2024-10-30 08:00] VITALS: BP 130/72; TEMP 98; O2SAT 96
[2024-10-30] MEDS: methylPREDNISolone (4MG) 4 MG TABLET (DAY #4, ACB) PO ONE (08:22)
[2024-10-30 12:00] VITALS: BP_SYST 129; BP_SYST 149; BP_DIAS 61; BP_DIAS 89; TEMP 97.4; TEMP 97.8; O2SAT 96; O2SAT 97
[2024-10-30 12:05] LABS: BASOPHILS % (AUTO) 0.2 % (0.0-2.0); EOSINOPHILS % (AUTO) 0.1 % (0.0-6.0); HEMATOCRIT 31 % (33-45); HEMOGLOBIN 9.5 g/dL (11.5-14.8); LYMPHOCYTES # (AUTO) 4.7 K/uL (0.8-4.8); LYMPHOCYTES % (AUTO) 24.6 % (20.0-44.0); MEAN CORPUSCULAR HEMOGLOBIN 23 PG (26.0-33.0); MEAN CORPUSCULAR HGB CONC 31 g/dl (31.0-36.0); MEAN CORPUSCULAR VOLUME 75 fL (82-100); MONOCYTES # (AUTO) 1.2 K/uL (0.1-1.30); MONOCYTES % (AUTO) 6.4 % (2.0-12.0); NEUTROPHILS # (AUTO) 13.2 K/uL (1.8-8.9); NEUTROPHILS % (AUTO) 68.7 % (43.0-81.0); PLATELET COUNT (AUTO) 521 K/uL (150-450); WHITE BLOOD COUNT (AUTO) 19.2 K/uL (4.3-11.0)
[2024-10-30 12:16] LABS: CALCIUM, SERUM 8.2 mg/dL (8.5-10.1); CREATININE 0.9 mg/dL (0.6-1.3); POTASSIUM 3.9 mmol/L (3.5-5.1)
[2024-10-30] MEDS: methylPREDNISolone (4MG) 4 MG TABLET (DAY #4, PC LUNCH) PO ONE (12:33)
[2024-10-30 16:00] VITALS: BP 134/81; TEMP 97.8; O2SAT 97
[2024-10-30 20:00] VITALS: BP_SYST 122; BP_SYST 123; BP_DIAS 72; BP_DIAS 75; TEMP 98.4; O2SAT 94; O2SAT 96
[2024-10-30] MEDS: methylPREDNISolone (4MG) 4 MG TABLET (DAY#4 HS) PO ONE (21:37)
[2024-10-31] VITALS: BP 122/75; TEMP 98.4; O2SAT 94
[2024-10-31 04:00] VITALS: BP 126/78; TEMP 98.4; O2SAT 93
[2024-10-31] MEDS: methylPREDNISolone (4MG) 4 MG TABLET (DAY#5, ACB) PO ONE (07:40)
[2024-10-31 08:00] VITALS: BP 130/71; TEMP 98.4; O2SAT 95
[2024-10-31 08:32] LABS: BASOPHILS % (AUTO) 0.1 % (0.0-2.0); EOSINOPHILS % (AUTO) 0.2 % (0.0-6.0); HEMATOCRIT 32 % (33-45); HEMOGLOBIN 9.6 g/dL (11.5-14.8); LYMPHOCYTES # (AUTO) 3.9 K/uL (0.8-4.8); LYMPHOCYTES % (AUTO) 21.4 % (20.0-44.0); MEAN CORPUSCULAR HEMOGLOBIN 23 PG (26.0-33.0); MEAN CORPUSCULAR HGB CONC 30 g/dl (31.0-36.0); MEAN CORPUSCULAR VOLUME 76 fL (82-100); MONOCYTES # (AUTO) 1.3 K/uL (0.1-1.30); MONOCYTES % (AUTO) 7.2 % (2.0-12.0); NEUTROPHILS # (AUTO) 12.8 K/uL (1.8-8.9); NEUTROPHILS % (AUTO) 71.1 % (43.0-81.0); PLATELET COUNT (AUTO) 535 K/uL (150-450); RED BLOOD CELL COUNT(AUTO) 4.17 MIL/uL (4.0-5.2); RED CELL DISTRIBUTION WIDTH 20.8 % (11.5-15.0)
[2024-10-31 08:43] LABS: CALCIUM, SERUM 8.7 mg/dL (8.5-10.1); CREATININE 0.8 mg/dL (0.6-1.3); POTASSIUM 3.9 mmol/L (3.5-5.1)
[2024-10-31 11:00] LABS: LYMPHOCYTES % (MANUAL) 17 % (16-48); MONOCYTES % (MANUAL) 10 % (0-11.0); MYELOCYTES % 4 % (0-0)
[2024-10-31 11:01] LABS: ANISOCYTOSIS 2+; HYPOCHROMASIA 1+; NEUTROPHILS % (MANUAL) 69 (42-76); PLATELET ESTIMATE INCREASED; STOMATOCYTES 1+
[2024-10-31 12:00] VITALS: BP 126/74; TEMP 98.2; O2SAT 96
[2024-10-31 16:00] VITALS: BP 132/70; TEMP 98.1; O2SAT 95
[2024-10-31 20:00] VITALS: BP 136/84; TEMP 98.1; O2SAT 96
[2024-10-31] MEDS: methylPREDNISolone (4MG) 4 MG TABLET (DAY#5,HS) PO ONE (22:11)
[2024-11-01] VITALS: BP 130/82; TEMP 98.6; O2SAT 96
[2024-11-01 04:00] VITALS: BP 136/77; TEMP 98.1; O2SAT 97
[2024-11-01 07:40] LABS: BASOPHILS % (AUTO) 0.2 % (0.0-2.0); EOSINOPHILS % (AUTO) 0.2 % (0.0-6.0); HEMATOCRIT 29 % (33-45); HEMOGLOBIN 9.2 g/dL (11.5-14.8); LYMPHOCYTES # (AUTO) 4.3 K/uL (0.8-4.8); LYMPHOCYTES % (AUTO) 22.1 % (20.0-44.0); MEAN CORPUSCULAR HEMOGLOBIN 24 PG (26.0-33.0); MEAN CORPUSCULAR HGB CONC 32 g/dl (31.0-36.0); MEAN CORPUSCULAR VOLUME 75 fL (82-100); MONOCYTES # (AUTO) 1.4 K/uL (0.1-1.30); NEUTROPHILS # (AUTO) 13.7 K/uL (1.8-8.9); NEUTROPHILS % (AUTO) 70.5 % (43.0-81.0); PLATELET COUNT (AUTO) 500 K/uL (150-450); RED BLOOD CELL COUNT(AUTO) 3.91 MIL/uL (4.0-5.2); RED CELL DISTRIBUTION WIDTH 20.7 % (11.5-15.0); WHITE BLOOD COUNT (AUTO) 19.4 K/uL (4.3-11.0)
[2024-11-01] MEDS: methylPREDNISolone (4MG) 4 MG TABLET (DAY#6,ACB) PO ONE (07:53)
[2024-11-01 08:00] VITALS: BP 114/73; TEMP 98.1
[2024-11-01 08:24] LABS: CALCIUM, SERUM 8.6 mg/dL (8.5-10.1); CREATININE 0.8 mg/dL (0.6-1.3); POTASSIUM 4.3 mmol/L (3.5-5.1)
[2024-11-01 12:00] VITALS: BP 99/81; TEMP 98.1; O2SAT 99
[2024-11-01 16:00] VITALS: TEMP 98.2; O2SAT 99
[2024-11-01 20:00] VITALS: BP 119/77; TEMP 98.4; O2SAT 99
[2024-11-02] VITALS: BP 120/73; TEMP 98.1; O2SAT 99
[2024-11-02 04:00] VITALS: BP 127/67; TEMP 98.1; O2SAT 97
[2024-11-02 08:00] VITALS: BP 118/69; TEMP 98.1; O2SAT 97
[2024-11-02] MEDS: FAMOTIDINE/PF INJ 20 MG/2 ML VIAL IV ONE (08:06)
[2024-11-02] MEDS: methylPREDNISolone SOD SUCC 125 MG/2ML VIAL ONE (08:06)
[2024-11-02 12:00] VITALS: BP 128/75; TEMP 98.2; O2SAT 99
[2024-11-02 16:00] VITALS: BP 115/73; TEMP 98; O2SAT 99
[2024-11-02 20:00] VITALS: BP 116/69; TEMP 98.6; O2SAT 98
[2024-11-03] VITALS: BP 125/82; TEMP 98.2; O2SAT 97
[2024-11-03 04:00] VITALS: BP 121/70; TEMP 98.6; O2SAT 97
[2024-11-03 08:00] VITALS: BP 111/74; TEMP 98.1; O2SAT 95
[2024-11-03 08:38] LABS: BASOPHILS % (AUTO) 0.2 % (0.0-2.0); EOSINOPHILS # (AUTO) 0.1 K/uL (0.0-0.7); EOSINOPHILS % (AUTO) 0.6 % (0.0-6.0); HEMATOCRIT 31 % (33-45); HEMOGLOBIN 9.6 g/dL (11.5-14.8); LYMPHOCYTES # (AUTO) 4.4 K/uL (0.8-4.8); LYMPHOCYTES % (AUTO) 23.4 % (20.0-44.0); MEAN CORPUSCULAR HEMOGLOBIN 23 PG (26.0-33.0); MEAN CORPUSCULAR HGB CONC 31 g/dl (31.0-36.0); MEAN CORPUSCULAR VOLUME 75 fL (82-100); MONOCYTES # (AUTO) 1.3 K/uL (0.1-1.30); MONOCYTES % (AUTO) 7.2 % (2.0-12.0); NEUTROPHILS # (AUTO) 12.9 K/uL (1.8-8.9); NEUTROPHILS % (AUTO) 68.6 % (43.0-81.0); PLATELET COUNT (AUTO) 429 K/uL (150-450); RED BLOOD CELL COUNT(AUTO) 4.19 MIL/uL (4.0-5.2); RED CELL DISTRIBUTION WIDTH 21.3 % (11.5-15.0); WHITE BLOOD COUNT (AUTO) 18.8 K/uL (4.3-11.0)
[2024-11-03 08:58] LABS: CALCIUM, SERUM 8.7 mg/dL (8.5-10.1); CREATININE 0.8 mg/dL (0.6-1.3); MAGNESIUM 2.1 mg/dL (1.8-2.4); PHOSPHORUS 5.2 mg/dL (2.5-4.9); POTASSIUM 4.5 mmol/L (3.5-5.1)
[2024-11-03 10:55] LABS: LYMPHOCYTES % (MANUAL) 22 % (16-48); MONOCYTES % (MANUAL) 7 % (0-11.0); NEUTROPHILS % (MANUAL) 71 (42-76)
[2024-11-03 10:56] LABS: ANISOCYTOSIS 1+; HYPOCHROMASIA 1+; PLATELET ESTIMATE ADEQUATE; STOMATOCYTES 1+
[2024-11-03 12:00] VITALS: BP 119/80; TEMP 98.2; O2SAT 95
[2024-11-03 16:00] VITALS: BP 109/70; TEMP 98.4; O2SAT 96
[2024-11-03 20:00] VITALS: BP 129/88; TEMP 98.2; O2SAT 96
[2024-11-04] VITALS: BP 120/73; TEMP 99.1; O2SAT 94
[2024-11-04 04:00] VITALS: BP 112/70; TEMP 98.2; O2SAT 95
[2024-11-04 07:43] LABS: BASOPHILS # (AUTO) 0.1 K/uL (0.0-0.2); BASOPHILS % (AUTO) 0.4 % (0.0-2.0); EOSINOPHILS # (AUTO) 0.1 K/uL (0.0-0.7); HEMATOCRIT 32 % (33-45); HEMOGLOBIN 10.1 g/dL (11.5-14.8); LYMPHOCYTES # (AUTO) 3.8 K/uL (0.8-4.8); LYMPHOCYTES % (AUTO) 25.7 % (20.0-44.0); MEAN CORPUSCULAR HEMOGLOBIN 24 PG (26.0-33.0); MEAN CORPUSCULAR HGB CONC 32 g/dl (31.0-36.0); MEAN CORPUSCULAR VOLUME 76 fL (82-100); MONOCYTES # (AUTO) 0.9 K/uL (0.1-1.30); MONOCYTES % (AUTO) 6.3 % (2.0-12.0); NEUTROPHILS # (AUTO) 9.9 K/uL (1.8-8.9); NEUTROPHILS % (AUTO) 66.6 % (43.0-81.0); PLATELET COUNT (AUTO) 376 K/uL (150-450); RED BLOOD CELL COUNT(AUTO) 4.22 MIL/uL (4.0-5.2); RED CELL DISTRIBUTION WIDTH 21.4 % (11.5-15.0); WHITE BLOOD COUNT (AUTO) 14.8 K/uL (4.3-11.0)
[2024-11-04 08:00] VITALS: BP 116/82; TEMP 98.2
[2024-11-04 08:14] LABS: CREATININE 0.7 mg/dL (0.6-1.3); MAGNESIUM 2.2 mg/dL (1.8-2.4); PHOSPHORUS 4.6 mg/dL (2.5-4.9); POTASSIUM 4.4 mmol/L (3.5-5.1)
[2024-11-04] MEDS ORDERED: diphenhydrAMINE HCL 50 MG/ML VIAL IV PRN (09:30)
[2024-11-04 12:00] VITALS: BP 116/82; TEMP 98.2; O2SAT 95
[2024-11-04 16:04] VITALS: BP 116/79; TEMP 98.4
[2024-11-04 20:00] VITALS: BP 118/94; TEMP 98.2; O2SAT 94
[2024-11-05] VITALS: BP 102/71; TEMP 98.2; O2SAT 94
[2024-11-05 04:00] VITALS: BP 109/52; TEMP 98.6; O2SAT 96
[2024-11-05 08:00] VITALS: BP 123/70; TEMP 98.2; O2SAT 95
[2024-11-05 12:00] VITALS: BP 107/64; TEMP 98.4; O2SAT 95
[2024-11-05 16:00] VITALS: BP 125/94; TEMP 98.1; O2SAT 97
[2024-11-05 20:00] VITALS: BP 113/69; TEMP 98.8; O2SAT 95
[2024-11-06] VITALS: BP 109/65; TEMP 98; O2SAT 99
[2024-11-06 03:46] VITALS: BP 116/75; TEMP 99; O2SAT 100
== END 2024-11-06 | disposition short-term general hospital (02) | DRG 871 ==
LOC: ER 20:25 → TELE1 10-03 01:27 → TELE-TD 10-03 18:39 → ICU 10-03 19:00 → TELE1 10-09 10:45 → ICU 10-22 10:42 → TELE1 10-22 16:01 → MEDSG1 10-23 10:07 → ICUOV 10-24 16:23 → TELE1 10-25 10:01
PROVIDERS: ATTEND Internal Medicine
PROC: 30233N1 Transfusion of Nonautologous Red Blood Cells into Peripheral Vein, Percutaneous Approach (ICD-10-PCS; principal; 2024-10-18)
DX: A41.01 Sepsis due to Methicillin susceptible Staphylococcus aureus (principal); J15.9 Unspecified bacterial pneumonia; K50.90 Crohn's disease, unspecified, without complications; I76 Septic arterial embolism; I38 Endocarditis, valve unspecified; I82.623 Acute embolism and thrombosis of deep veins of upper extremity, bilateral; I82.611 Acute embolism and thrombosis of superficial veins of right upper extremity; L02.213 Cutaneous abscess of chest wall; L03.313 Cellulitis of chest wall; Z68.41 Body mass index [BMI] 40.0-44.9, adult; E87.6 Hypokalemia; E88.09 Other disorders of plasma-protein metabolism, not elsewhere classified; D89.40 Mast cell activation, unspecified; K21.9 Gastro-esophageal reflux disease without esophagitis; Z20.822 Contact with and (suspected) exposure to COVID-19; G90.A Postural orthostatic tachycardia syndrome [POTS]; I80.8 Phlebitis and thrombophlebitis of other sites; G89.4 Chronic pain syndrome; Z88.2 Allergy status to sulfonamides; Z88.1 Allergy status to other antibiotic agents; Z91.041 Radiographic dye allergy status; Z79.51 Long term (current) use of inhaled steroids; Z79.899 Other long term (current) drug therapy; Z79.620 Long term (current) use of immunosuppressive biologic; Z79.891 Long term (current) use of opiate analgesic; Z86.718 Personal history of other venous thrombosis and embolism; Z87.01 Personal history of pneumonia (recurrent); Z88.3 Allergy status to other anti-infective agents; Z90.49 Acquired absence of other specified parts of digestive tract; E66.01 Morbid (severe) obesity due to excess calories; F41.9 Anxiety disorder, unspecified; F32.9 Major depressive disorder, single episode, unspecified; D75.839 Thrombocytosis, unspecified; D50.9 Iron deficiency anemia, unspecified; R91.8 Other nonspecific abnormal finding of lung field; M70.62 Trochanteric bursitis, left hip; S76.012A Strain of muscle, fascia and tendon of left hip, initial encounter; X58.XXXA Exposure to other specified factors, initial encounter; Y92.9 Unspecified place or not applicable
CPT/HCPCS: 36415; 71045-TC; 71250-TC; 73564-TC; 73700-TC; 73721-TC; 74018; 76882; 80048-TC; 80053-TC; 80076-TC; 81001; 82164; 82247-TC; 82248-TC; 82378; 82607-TC; 82728-TC; 82784; 82962-TC; 83010; 83520; 83540-TC; 83605-TC; 83615-TC; 83735-TC; 83921; 84100-TC; 84155; 84165; 84443-TC; 84484-TC; 84703-TC; 85025-TC; 85027-TC; 85045-TC; 85610-TC; 85730-TC; 86140-TC; 86225; 86235; 86334; 86360; 86431-TC; 86480; 86706; 86803; 86850-TC; 86880-TC; 87040-TC; 87086-TC; 87340; 87806; 93307-TC; 93312-TC; 93970-TC; 93971-TC; 94799-TC; 97110-TC; 97116-TC; 97530-TC; A4216; A4223; A6253; A6403; A6407; G0378; J0171; J0456; J0696; J1171; J1200; J1642; J1644; J2003; J2020; J2405; J2470; J2543; J2704; J2916; J2919; J3420; J3490; J7030; J7040; J7050; J7060; J7509; P9016; Q0163; Q0177